=== PATIENT | female | born 1955 | race Hispanic/Latino ===

== ENCOUNTER 2017-03-20 09:29 | Emergency (ER) | payer MEDICARE, MEDICAID ==
[~2017-03-20] VITALS: Ht 149.9 cm; Wt 66.4 kg
[2017-03-20] MEDS ORDERED: BUPR300T34 PO (09:43)
[2017-03-20] MEDS ORDERED: AMLO25TA PO (09:46)
[2017-03-20] MEDS ORDERED: TEMA30CA PO (09:46)
[2017-03-20] MEDS ORDERED: QUET1TAB7 PO (09:46)
[2017-03-20] MEDS ORDERED: METO50TA7 PO (09:46)
[2017-03-20] MEDS ORDERED: PANT40TA2 PO (09:46)
[2017-03-20] MEDS ORDERED: AMLO5TAB2 PO (09:46)
[2017-03-20] MEDS ORDERED: NS 500 ML IV ONE (10:15)
[2017-03-20 10:51] LABS: BASO # 0.1 10^3/uL (0.0-0.2); BASO % 1.2 % (0.0-1.0); EOS # 0.2 10^3/uL (0.0-0.50); MEAN CORPUSCULAR HEMOGLOBIN 28.4 pg (27.0-33.0); MEAN CORPUSCULAR HGB CONC 32.5 g/dl (32.0-36.5); MEAN CORPUSCULAR VOLUME 87.2 fl (80.0-96.0); MONO # 0.4 10^3/uL (0.0-0.8); NEUTROPHILS # 2.6 10^3/uL (1.8-7.7); NEUTROPHILS % 62.8 % (36.0-66.0); PLATELET COUNT, AUTOMATED 245 10^3/uL (150-450); RED CELL DISTRIBUTION WIDTH 14.4 % (11.5-14.5); WHITE BLOOD COUNT 4.2 10^3/uL (4.0-10.0)
[2017-03-20 11:05] LABS: INR 1.01
--- NOTE | 2017-03-20 11:08 | ED PDOC ---
Post-Departure Follow-Up Patient does not speak Indonesian. Has daughter in the room and cousin on the phone to translate for patient. Reports a history of "stomach not emptying" - assuming Gastroparesis. States that when she began having epigastric abdominal pain, nausea and vomiting 2 weeks ago she went to see her GI doctor and they scheduled her for a endoscopy and colonoscopy, but the patient missed her appointment because they moved to a new location. Reports that she is still having epigastric abdominal pain that radiates to the back, nausea, vomiting and loose stools. Reports that these symptoms worsen after eating. Patient also reports intermittent urinary frequency. Denies fever, chest pain, shortness of breath. No reported history of cardiac disease. NANCY BARRIOS PA-C Mar 20, 2017 11:08
[2017-03-20 11:15] LABS: ALBUMIN 3.6 GM/DL (3.2-5.2); ALBUMIN/GLOBULIN RATIO 1.13 (1.00-1.93); ALKALINE PHOSPHATASE 117 U/L (45-117); ALT/SGPT 40 U/L (12-78); ANION GAP 5 MEQ/L (8-16); AST/SGOT 33 U/L (7-37); BILIRUBIN,DIRECT 0.1 MG/DL (0.0-0.2); BILIRUBIN,TOTAL 0.4 MG/DL (0.2-1.0); BLOOD UREA NITROGEN 19 MG/DL (7-18); CALCIUM LEVEL 8.6 MG/DL (8.8-10.2); CARBON DIOXIDE LEVEL 32 MEQ/L (21-32); CHLORIDE LEVEL 105 MEQ/L (98-107); CREATININE FOR GFR 1.03 MG/DL (0.55-1.02); GLUCOSE, FASTING 72 MG/DL (80-110); POTASSIUM SERUM 4.1 MEQ/L (3.5-5.1); SODIUM LEVEL 142 MEQ/L (136-145); TOTAL PROTEIN 6.8 GM/DL (6.4-8.2)
[2017-03-20] MEDS ORDERED: ISOVUE-370 76% 100ML VIAL (Q9967) As Ordered ONE (11:21)
--- NOTE | 2017-03-20 11:50 | REP ---
TWO VIEW CHEST: Two views of the chest are performed without priors for comparison. I see no acute infiltrate. There is mild cardiomegaly. There is tortuosity of the thoracic aorta. There are degenerative changes of the spine. IMPRESSION: Mild cardiomegaly. No acute infiltrate. Signed by Cyrus Morris MD 03/20/2017 05:43 P
--- NOTE | 2017-03-20 12:08 | REP ---
CT of the abdomen and pelvis with IV contrast, without bowel contrast: There are no comparisons. The visualized lung woodward are unremarkable. The hepatic parenchyma, gallbladder, pancreas and spleen are unremarkable. The adrenals and kidneys are unremarkable. There is no hydronephrosis. The abdominal aorta is unremarkable. There is no bowel distension or obstruction. Pelvis: The appendix is unremarkable. The uterus is unremarkable. There is a 8 mm calculus in the right adnexa. The left adnexa is unremarkable. There is no ascites or adenopathy. The bladder is unremarkable. The lumbar spine is unremarkable except for degenerative disc disease at L5 S1. There is multilevel degenerative disc disease in the visualized lower thoracic spine. Impression: Essentially negative CT of the abdomen pelvis except for a calcification in the right adnexa, of uncertain significance, degenerative calcification versus dermoid are some diagnostic considerations. Degenerative disc disease in the lumbar spine L5 S1 and in the lower thoracic spine. Signed by Cyrus Pedraza MD 03/20/2017 12:00 P
[2017-03-20] MEDS ORDERED: REGL10TA6 PO (12:50)
[2017-03-20 12:52] VITALS: BP 128/83
--- NOTE | 2017-03-21 06:48 | ECGEPIP ---
Stationary ECG Study [facility] - ED Test Date: 2017-03-20 Pat Name: JOSE GLASER Department: Room: - Gender: F [place]: sb : 1955 Requested By: NANCY Quintana PA-C Order Number: [id number] Reading MD: Michele Reynoso Measurements Intervals [place] Rate: 70 P: 43 NE: 183 QRS: 13 QRSD: 78 T: 60 QT: 396 QTc: 427 Interpretive Statements SINUS RHYTHM MODERATE VOLTAGE CRITERIA FOR LVH, CONSIDER NORMAL VARIANT NONSPECIFIC T-WAVE ABNORMALITY BASELINE ARTIFACT AND WANDERING MAY AFFECT READING NO OLD ECG FOR COMPARISON Electronically Signed On 03-21-2017 6:48:32 EDT by Michele Reynoso
== END 2017-03-20 12:58 | disposition home or self-care (01) ==
LOC: M ED 09:29
DX: K31.84 Gastroparesis (principal); R11.2 Nausea with vomiting, unspecified; R94.31 Abnormal electrocardiogram [ECG] [EKG]; I10 Essential (primary) hypertension; Z85.818 Personal history of malignant neoplasm of other sites of lip, oral cavity, and pharynx; M51.37 Other intervertebral disc degeneration, lumbosacral region; I51.7 Cardiomegaly; Z79.899 Other long term (current) drug therapy
CPT/HCPCS: 71020; 74177; 80048; 80076; 81001; 82550; 82553; 83605; 83690; 84484; 85025; 85610; 93005; 96360; 96361; 99284; Q9967

== ENCOUNTER 2017-03-30 20:05 | Emergency (ER) | payer MEDICARE, MEDICAID ==
[~2017-03-30] VITALS: Ht 149.9 cm; Wt 63.6 kg
[~2017-03-30 20:05] MED LIST: AMLO25TA PO; AMLO5TAB2 PO; BUPR300T34 PO; METO50TA7 PO; PANT40TA2 PO; QUET1TAB7 PO; REGL10TA6 PO; TEMA30CA PO
[2017-03-30 21:33] LABS: BASO # 0.1 10^3/uL (0.0-0.2); BASO % 0.9 % (0.0-1.0); EOS # 0.2 10^3/uL (0.0-0.50); EOS % 2.8 % (0.0-3.0); IMMATURE GRANULOCYTE % 0.3 % (0-0); LYMPH # 2.3 10^3/uL (1.5-4.5); MEAN CORPUSCULAR HEMOGLOBIN 28.4 pg (27.0-33.0); MEAN CORPUSCULAR HGB CONC 32.5 g/dl (32.0-36.5); MEAN CORPUSCULAR VOLUME 87.4 fl (80.0-96.0); MONO # 0.6 10^3/uL (0.0-0.8); MONO % 7.3 % (0.0-5.0); NEUTROPHILS # 4.8 10^3/uL (1.8-7.7); NEUTROPHILS % 59.7 % (36.0-66.0); PLATELET COUNT, AUTOMATED 275 10^3/uL (150-450); RED CELL DISTRIBUTION WIDTH 14.3 % (11.5-14.5)
[2017-03-30 22:01] LABS: ANION GAP 6 MEQ/L (8-16); BLOOD UREA NITROGEN 17 MG/DL (7-18); CALCIUM LEVEL 8.8 MG/DL (8.8-10.2); CARBON DIOXIDE LEVEL 31 MEQ/L (21-32); CHLORIDE LEVEL 105 MEQ/L (98-107); CREATININE FOR GFR 1.01 MG/DL (0.55-1.02); GLOMERULAR FILTRATION RATE 59.3 (>45); GLUCOSE, FASTING 82 MG/DL (80-110); POTASSIUM SERUM 3.5 MEQ/L (3.5-5.1); SODIUM LEVEL 142 MEQ/L (136-145)
[2017-03-30] MEDS ORDERED: ACETAMINOPHEN TAB 650MG DOSE (2X325MG) PO ONE (22:15)
[2017-03-31 04:09] VITALS: BP 124/78
--- NOTE | 2017-03-31 06:34 | ECGEPIP ---
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
--- NOTE | 2017-03-31 09:53 | REP ---
Clinical: Chest pain . Comparison: 03/20/2017 . Technique: PA and lateral. Findings: The mediastinum and cardiac silhouette are normal. The lung woodward are clear and without acute consolidation, effusion, or pneumothorax. The skeletal structures are intact and normal. Impression: 1. No acute cardiopulmonary process. Signed by Jesus Davis MD 03/31/2017 09:45 A
== END 2017-03-31 04:43 | disposition home or self-care (01) ==
LOC: M ED 20:05
DX: R07.89 Other chest pain (principal); I10 Essential (primary) hypertension; Z79.899 Other long term (current) drug therapy

== ENCOUNTER → 2017-06-17 | Outpatient (REF) | payer MEDICAID ==
[2017-06-17 12:27] LABS: BASO # 0.1 10^3/uL (0.0-0.2); BASO % 1.5 % (0.0-1.0); EOS # 0.2 10^3/uL (0.0-0.50); EOS % 4.9 % (0.0-3.0); HEMATOCRIT 40.5 % (36.0-47.0); HEMOGLOBIN 13.2 g/dl (12.0-16.0); IMMATURE GRANULOCYTE % 0.2 % (0-0); LYMPH # 1.4 10^3/uL (1.5-4.5); LYMPH % 30.3 % (24.0-44.0); MEAN CORPUSCULAR HEMOGLOBIN 27.7 pg (27.0-33.0); MEAN CORPUSCULAR HGB CONC 32.6 g/dl (32.0-36.5); MEAN CORPUSCULAR VOLUME 85.1 fl (80.0-96.0); MONO # 0.3 10^3/uL (0.0-0.8); MONO % 6.5 % (0.0-5.0); NEUTROPHILS # 2.6 10^3/uL (1.8-7.7); NEUTROPHILS % 56.6 % (36.0-66.0); PLATELET COUNT, AUTOMATED 269 10^3/uL (150-450); RED BLOOD COUNT 4.76 10^6/uL (4.00-5.40); RED CELL DISTRIBUTION WIDTH 14.3 % (11.5-14.5); WHITE BLOOD COUNT 4.7 10^3/uL (4.0-10.0)
[2017-06-17 13:29] LABS: ALBUMIN 3.5 GM/DL (3.2-5.2); ALBUMIN/GLOBULIN RATIO 1.03 (1.00-1.93); ALKALINE PHOSPHATASE 99 U/L (45-117); ALT/SGPT 27 U/L (12-78); ANION GAP 8 MEQ/L (8-16); AST/SGOT 23 U/L (7-37); BILIRUBIN,TOTAL 0.3 MG/DL (0.2-1.0); BLOOD UREA NITROGEN 14 MG/DL (7-18); CALCIUM LEVEL 8.6 MG/DL (8.8-10.2); CARBON DIOXIDE LEVEL 29 MEQ/L (21-32); CHLORIDE LEVEL 105 MEQ/L (98-107); CHOLESTEROL LEVEL 300 MG/DL (<200); CHOLESTEROL RISK RATIO 3.092 (<5); CREATININE FOR GFR 0.84 MG/DL (0.55-1.30); GLOMERULAR FILTRATION RATE > 60.0 (>45); GLUCOSE, FASTING 99 MG/DL (70-100); HDL CHOLESTEROL 97 MG/DL (>40); LDL CHOLESTEROL 188.8 MG/DL (<100); NON-HDL-C 203 MG/DL; POTASSIUM SERUM 4.3 MEQ/L (3.5-5.1); SODIUM LEVEL 142 MEQ/L (136-145); TOTAL PROTEIN 6.9 GM/DL (6.4-8.2); TRIGLYCERIDES LEVEL 71 MG/DL (<150)
== END ==
LOC: M LAB REF 11:49
DX: C73 Malignant neoplasm of thyroid gland (principal)

== ENCOUNTER 2018-01-08 14:00 | Emergency (ER) | payer MEDICARE, MEDICAID, OTHER ==
[2018-01-08] MEDS: KETOROLAC 30 MG/ML VIAL (J1885) IV ×2 (15:45)
[2018-01-08 16:26] LABS: BASO # 0.1 10^3/uL (0.0-0.2); BASO % 1.5 % (0.0-1.0); EOS # 0.3 10^3/uL (0.0-0.50); EOS % 4.8 % (0.0-3.0); HEMATOCRIT 40.4 % (36.0-47.0); IMMATURE GRANULOCYTE % 0.2 % (0-3.0); LYMPH # 1.7 10^3/uL (1.5-4.5); LYMPH % 31.9 % (24.0-44.0); MEAN CORPUSCULAR HEMOGLOBIN 28.4 pg (27.0-33.0); MEAN CORPUSCULAR HGB CONC 32.2 g/dl (32.0-36.5); MEAN CORPUSCULAR VOLUME 88.2 fl (80.0-96.0); MONO # 0.4 10^3/uL (0.0-0.8); MONO % 6.5 % (0.0-5.0); NEUTROPHILS % 55.1 % (36.0-66.0); PLATELET COUNT, AUTOMATED 252 10^3/uL (150-450); RED BLOOD COUNT 4.58 10^6/uL (4.00-5.40); RED CELL DISTRIBUTION WIDTH 14.8 % (11.5-14.5); WHITE BLOOD COUNT 5.4 10^3/uL (4.0-10.0)
[2018-01-08 16:52] LABS: ALBUMIN 3.4 GM/DL (3.2-5.2); ALBUMIN/GLOBULIN RATIO 0.94 (1.00-1.93); ALKALINE PHOSPHATASE 100 U/L (45-117); ALT/SGPT 25 U/L (12-78); ANION GAP 7 MEQ/L (8-16); AST/SGOT 25 U/L (7-37); BILIRUBIN,TOTAL 0.3 MG/DL (0.2-1.0); BLOOD UREA NITROGEN 16 MG/DL (7-18); CALCIUM LEVEL 8.6 MG/DL (8.8-10.2); CARBON DIOXIDE LEVEL 29 MEQ/L (21-32); CHLORIDE LEVEL 108 MEQ/L (98-107); CK-MB VALUE MASS < 1.0 NG/ML (<3.6); CPK CREATINE PHOSPHOKINASE 126 U/L (26-192); CREATININE FOR GFR 0.94 MG/DL (0.55-1.30); GLOMERULAR FILTRATION RATE > 60.0 (>45); GLUCOSE, FASTING 79 MG/DL (70-100); LIPASE 209 U/L (73-393); MB/CK RELATIVE INDEX 0.79 (< OR =4); POTASSIUM SERUM 4.3 MEQ/L (3.5-5.1); SODIUM LEVEL 144 MEQ/L (136-145); TROPONIN I < 0.02 NG/ML (< 0.10)
[2018-01-08 17:24] LABS: KETONE, URINE AUTO RFX NEGATIVE (NEGATIVE); MUCUS, URINE RFX SMALL (NEGATIVE); NITRITE, URINE AUTO RFX NEGATIVE (NEGATIVE); RBC, URINE AUTO RFX 2 /HPF (0-3); SPECIFIC GRAVITY UR AUTO RFX 1.026 (1.002-1.035); SQUAM EPITHELIAL CELL UR AURFX 0 /HPF (0-6); WBC, URINE AUTO RFX 2 /HPF (0-3)
[2018-01-08 17:33] LABS: LEUKOCYTE ESTERASE UR AUTO RFX TRACE (NEGATIVE)
[2018-01-08] MEDS ORDERED: METHOCARBAMOL 750 MG TAB PO ×2 (18:00)
== END 2018-01-08 18:29 | disposition home or self-care (01) ==
LOC: M ED 14:00
DX: R10.9 Unspecified abdominal pain (principal); M54.6 Pain in thoracic spine; I10 Essential (primary) hypertension; K21.9 Gastro-esophageal reflux disease without esophagitis
CPT/HCPCS: J1885

== ENCOUNTER → 2018-04-28 | Outpatient (CLI) | payer MEDICARE, MEDICAID | LOC: M LAB 16:19 | DX: S59.902A Unspecified injury of left elbow, initial encounter (principal); W19.XXXA Unspecified fall, initial encounter; Y92.9 Unspecified place or not applicable | CPT/HCPCS: 73080 ==

== ENCOUNTER 2018-07-09 12:26 | Emergency (ER) | payer MEDICARE, MEDICAID ==
[~2018-07-09] VITALS: Ht 152.4 cm; Wt 71.4 kg
[~2018-07-09 12:26] MED LIST changes: -AMLO5TAB2 PO; +AMLO5TAB6 PO; +MELO15TA28; +METO1TAB7; +OMEP40CA2; -PANT40TA2 PO; +PANT40TA3 PO; +ROBA500T PO; +SERT-155
[2018-07-09] MEDS ORDERED: ALL10TAB2 PO (13:47)
[2018-07-09 13:54] VITALS: BP 131/82
== END 2018-07-09 14:04 | disposition home or self-care (01) ==
LOC: M ED 12:26
DX: R22.0 Localized swelling, mass and lump, head (principal); I11.9 Hypertensive heart disease without heart failure

== ENCOUNTER 2018-10-05 15:26 | Emergency (ER) | payer MEDICARE ==
[~2018-10-05] VITALS: Ht 152.4 cm; Wt 70.9 kg
[~2018-10-05 15:26] MED LIST changes: -ALBU17IN2 INH; -PRED20TA PO; -PRIL20TA2 PO; -QUET1TAB7; -SUCR1SS PO; -TEMA15CA2
[2018-10-05] MEDS ORDERED: METO1TAB7 (15:49)
[2018-10-05] MEDS ORDERED: TEMA15CA2 (15:49)
[2018-10-05] MEDS ORDERED: QUET1TAB7 (15:49)
[2018-10-05 16:10] LABS: BASO # 0.1 10^3/uL (0.0-0.2); BASO % 1.2 % (0.0-1.0); EOS # 0.3 10^3/uL (0.0-0.50); EOS % 5.6 % (0.0-3.0); HEMATOCRIT 38.6 % (36.0-47.0); HEMOGLOBIN 12.4 g/dl (12.0-15.5); LYMPH # 1.5 10^3/uL (1.5-4.5); LYMPH % 31.1 % (24.0-44.0); MEAN CORPUSCULAR HEMOGLOBIN 27.5 pg (27.0-33.0); MEAN CORPUSCULAR HGB CONC 32.1 g/dl (32.0-36.5); MEAN CORPUSCULAR VOLUME 85.6 fl (80.0-96.0); MONO # 0.3 10^3/uL (0.0-0.8); MONO % 5.8 % (0.0-5.0); NEUTROPHILS # 2.7 10^3/uL (1.8-7.7); NEUTROPHILS % 56.3 % (36.0-66.0); PLATELET COUNT, AUTOMATED 227 10^3/uL (150-450); RED BLOOD COUNT 4.51 10^6/uL (4.00-5.40); WHITE BLOOD COUNT 4.8 10^3/uL (4.0-10.0)
[2018-10-05 16:28] LABS: PARTIAL THROMBOPLASTIN TIME 28.4 SECONDS (25.4-37.6)
[2018-10-05 16:32] LABS: INR 0.92; PROTHROMBIN TIME 12.5 SECONDS (12.1-14.4)
[2018-10-05 16:53] LABS: ALBUMIN 3.4 GM/DL (3.2-5.2); ALT/SGPT 41 U/L (12-78); BILIRUBIN,DIRECT < 0.1 MG/DL (0.0-0.2); BILIRUBIN,TOTAL 0.3 MG/DL (0.2-1.0); BLOOD UREA NITROGEN 22 MG/DL (7-18); CALCIUM LEVEL 8.8 MG/DL (8.8-10.2); CARBON DIOXIDE LEVEL 28 MEQ/L (21-32); CHLORIDE LEVEL 105 MEQ/L (98-107); CK-MB VALUE MASS < 1.0 NG/ML (<3.6); CPK CREATINE PHOSPHOKINASE 108 U/L (26-192); CREATININE FOR GFR 0.93 MG/DL (0.55-1.30); FREE T4 0.73 NG/DL (0.76-1.46); GLOMERULAR FILTRATION RATE > 60.0 (>45); GLUCOSE, FASTING 144 MG/DL (70-100); MB/CK RELATIVE INDEX 0.93 (< OR =4); POTASSIUM SERUM 4.2 MEQ/L (3.5-5.1); SODIUM LEVEL 141 MEQ/L (136-145); TOTAL PROTEIN 6.2 GM/DL (6.4-8.2); TROPONIN I < 0.02 NG/ML (< 0.10)
[2018-10-05] MEDS ORDERED: ISOVUE-370 76% 100ML VIAL (Q9967) As Ordered ONE (18:32)
--- NOTE | 2018-10-05 19:32 | REPVR ---
EXAM: CT Angiography Chest With Contrast EXAM DATE/TIME: 10/05/2018 6:47 PM CLINICAL HISTORY: 63 years old, female; Chest pain; Additional info: Shortness of breath, elevated ddimer TECHNIQUE: Imaging protocol: Axial computed tomographic angiography images of the chest with intravenous contrast using CT angiography protocol. Coronal and sagittal reformatted images were created and reviewed. 3D rendering: MIP reconstructed images were created and reviewed. Radiation optimization: All CT scans at this facility use at least one of these dose optimization techniques: automated exposure control; mA and/or kV adjustment per patient size (includes targeted exams where dose is matched to clinical indication); or iterative reconstruction. Contrast material: ISO 370; Contrast volume: 75 ml; Contrast route: IV; COMPARISON: CR CHEST 2 VIEW 10/05/2018 12:00 PM FINDINGS: Pulmonary arteries: There is opacification of the pulmonary arteries with no evidence of pulmonary embolus. Aorta: Opacification of the aorta. The aorta appears intact. Lungs: Lungs appear clear. Pleural space: There is no evidence of pneumothorax. There is no evidence of pleural effusion. Heart: The heart is normal in size. There is no pericardial effusion. Liver: Normal appearing liver. Spleen: Normal appearing spleen. Adrenals: Normal adrenal glands. Lymph nodes: Unremarkable. No enlarged lymph nodes. Bones/joints: Is mild anterior osteophyte formation and also kyphosis. Soft tissues: Unremarkable. IMPRESSION: No evidence of pulmonary embolus. Electronically signed by: Darrell Shanks On 10/05/2018 19:31:47 PM
[2018-10-05 20:23] LABS: CK-MB VALUE MASS < 1.0 NG/ML (<3.6); CPK CREATINE PHOSPHOKINASE 104 U/L (26-192); MB/CK RELATIVE INDEX 0.96 (< OR =4); TROPONIN I < 0.02 NG/ML (< 0.10)
[2018-10-05] MEDS ORDERED: SUCR1SS PO (20:43)
[2018-10-05] MEDS ORDERED: PRED20TA PO (20:43)
[2018-10-05] MEDS ORDERED: PRIL20TA2 PO (20:43)
[2018-10-05] MEDS ORDERED: ALBU17IN2 INH (20:43)
[2018-10-05] MEDS ORDERED: GI COCKTAIL 50ML BTL(HYOSCYAMINE/MAALOX/LIDOCAINE VISCOUS)(1:3:1) PO ONE (20:45)
[2018-10-05] MEDS ORDERED: predniSONE 20 MG TAB PO ONE (20:45)
[2018-10-05 21:11] VITALS: BP 167/99
--- NOTE | 2018-10-06 06:12 | ECGEPIP ---
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
--- NOTE | 2018-10-06 06:13 | ECGEPIP ---
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
== END 2018-10-05 21:13 | disposition home or self-care (01) ==
LOC: M ED 15:26
DX: K21.0 Gastro-esophageal reflux disease with esophagitis (principal); R07.1 Chest pain on breathing; J45.909 Unspecified asthma, uncomplicated; Z85.850 Personal history of malignant neoplasm of thyroid
CPT/HCPCS: 36415; 71046; 71275; 80048; 80053; 80076; 82550; 82553; 84439; 84443; 84484; 85025; 85379; 85610; 85730; 93005; 93041; 94760; 99285; Q9967

== ENCOUNTER → 2018-10-05 | Outpatient (CLI) | payer MEDICARE ==
[~2018-10-05] MED LIST changes: +ALBU17IN2 INH; +ALL10TAB2 PO; +PRED20TA PO; +PRIL20TA2 PO; +QUET1TAB7; +SUCR1SS PO; +TEMA15CA2
--- NOTE | 2018-10-05 12:38 | REP ---
Chest two views HISTORY: Chest pain Comparison: 03/30/2017 The lungs are clear. The heart is normal in size. The pulmonary vasculature is normal in appearance. The bony structure is intact. IMPRESSION: No acute disease. Electronically Signed by Daniel Joseph MD 10/05/2018 12:29 P
[2018-10-05 13:24] LABS: BASO # 0.1 10^3/uL (0.0-0.2); BASO % 1.2 % (0.0-1.0); EOS # 0.4 10^3/uL (0.0-0.50); HEMATOCRIT 41.5 % (36.0-47.0); LYMPH # 1.8 10^3/uL (1.5-4.5); LYMPH % 34.2 % (24.0-44.0); MEAN CORPUSCULAR HGB CONC 31.3 g/dl (32.0-36.5); MEAN CORPUSCULAR VOLUME 89.2 fl (80.0-96.0); MONO # 0.4 10^3/uL (0.0-0.8); MONO % 7.8 % (0.0-5.0); NEUTROPHILS # 2.5 10^3/uL (1.8-7.7); NEUTROPHILS % 49.4 % (36.0-66.0); PLATELET COUNT, AUTOMATED 260 10^3/uL (150-450); RED BLOOD COUNT 4.65 10^6/uL (4.00-5.40); WHITE BLOOD COUNT 5.1 10^3/uL (4.0-10.0)
[2018-10-05 14:09] LABS: ALBUMIN 3.4 GM/DL (3.2-5.2); ALT/SGPT 43 U/L (12-78); BILIRUBIN,TOTAL 0.4 MG/DL (0.2-1.0); BLOOD UREA NITROGEN 23 MG/DL (7-18); CALCIUM LEVEL 8.9 MG/DL (8.8-10.2); CARBON DIOXIDE LEVEL 30 MEQ/L (21-32); CHLORIDE LEVEL 104 MEQ/L (98-107); CK-MB VALUE MASS < 1.0 NG/ML (<3.6); CPK CREATINE PHOSPHOKINASE 105 U/L (26-192); CREATININE FOR GFR 0.89 MG/DL (0.55-1.30); FREE T4 0.73 NG/DL (0.76-1.46); GLOMERULAR FILTRATION RATE > 60.0 (>45); GLUCOSE, FASTING 64 MG/DL (70-100); MB/CK RELATIVE INDEX 0.95 (< OR =4); POTASSIUM SERUM 3.9 MEQ/L (3.5-5.1); SODIUM LEVEL 141 MEQ/L (136-145); TOTAL PROTEIN 6.6 GM/DL (6.4-8.2); TROPONIN I < 0.02 NG/ML (< 0.10)
== END ==
LOC: M WUC 11:53
PROVIDERS: ATTEND Physician Assistant
DX: R07.1 Chest pain on breathing (principal)

== ENCOUNTER → 2018-10-13 | Outpatient (REF) | payer MEDICARE, MEDICAID ==
[~2018-10-13] MED LIST changes: +ALBU17IN2 INH; +PRED20TA PO; +PRIL20TA2 PO; +QUET1TAB7; +SUCR1SS PO; +TEMA15CA2
[2018-10-14 13:32] LABS: AMORPHOUS SEDIMENT LARGE (NEGATIVE); APPEARANCE, URINE TURBID (CLEAR); BACTERIA, URINE AUTO NEGATIVE (NEGATIVE); BILIRUBIN, URINE AUTO NEGATIVE (NEGATIVE); BLOOD, URINE BLOOD NEGATIVE (NEGATIVE); COLOR, URINE AMBER (YELLOW); GLUCOSE, URINE (UA) AUTO NEGATIVE (NEGATIVE); KETONE, URINE AUTO NEGATIVE (NEGATIVE); LEUKOCYTE ESTERASE, URINE AUTO TRACE (NEGATIVE); MUCUS, URINE SMALL (NEGATIVE); NITRITE, URINE AUTO NEGATIVE (NEGATIVE); PROTEIN, URINE AUTO NEGATIVE (NEGATIVE); RBC, URINE AUTO 0 /HPF (0-3); SPECIFIC GRAVITY URINE AUTO 1.023 (1.002-1.035); SQUAMOUS EPITHELIAL CELL UR AU 0 /HPF (0-6); UROBILINOGEN, URINE AUTO 0.2 mg/dL (0.0-2.0); WBC, URINE AUTO 17 /HPF (0-3)
== END ==
LOC: M LAB REF 12:28
PROVIDERS: ATTEND Nurse Practitioner Family
DX: R39.89 Other symptoms and signs involving the genitourinary system (principal)

== ENCOUNTER 2019-02-06 14:59 | Emergency (ER) | payer MEDICARE, MEDICAID ==
[~2019-02-06 14:59] MED LIST changes: -ALBU17IN2 INH; -BUPR300T34 PO; +BUPR300T92 PO; -OMEP40CA2; +OMEP40CA97; +PROV108A INH; -SERT-155; +SERT50TA29
[2019-02-06] MEDS ORDERED: QUET1TAB8 (15:11)
[2019-02-06] MEDS ORDERED: ZOLP10TA2 (15:11)
[2019-02-06] MEDS ORDERED: BUPR150T3 (15:11)
[2019-02-06] MEDS ORDERED: NS 1,000 ML IV ONE (15:45)
[2019-02-06] MEDS ORDERED: MORPHINE 2 MG/ML 1ML VIAL (J2270) IV ONE (15:45)
[2019-02-06 16:02] LABS: BASO # 0.1 10^3/uL (0.0-0.2); BASO % 1.1 % (0.0-1.0); EOS # 0.2 10^3/uL (0.0-0.5); EOS % 3.6 % (0.0-3.0); HEMATOCRIT 39.6 % (36.0-47.0); HEMOGLOBIN 12.8 g/dl (12.0-15.5); LYMPH # 1.3 10^3/uL (1.5-5.0); MEAN CORPUSCULAR HEMOGLOBIN 28.8 pg (27.0-33.0); MEAN CORPUSCULAR HGB CONC 32.3 g/dl (32.0-36.5); MONO # 0.3 10^3/uL (0.0-0.8); MONO % 6.4 % (0.0-5.0); NEUTROPHILS # 3.4 10^3/uL (1.5-8.5); NEUTROPHILS % 63.5 % (36.0-66.0); PLATELET COUNT, AUTOMATED 267 10^3/uL (150-450); RED BLOOD COUNT 4.45 10^6/uL (4.00-5.40); WHITE BLOOD COUNT 5.3 10^3/uL (4.0-10.0)
[2019-02-06] MEDS ORDERED: ISOVUE-370 76% 100ML VIAL (Q9967) As Ordered ONE (16:25)
[2019-02-06 16:40] LABS: ALBUMIN 3.2 GM/DL (3.2-5.2); ALT/SGPT 28 U/L (12-78); AMYLASE 92 U/L (25-115); BILIRUBIN,DIRECT < 0.1 MG/DL (0.0-0.2); BILIRUBIN,TOTAL 0.4 MG/DL (0.2-1.0); LIPASE 118 U/L (73-393); TOTAL PROTEIN 6.6 GM/DL (6.4-8.2)
[2019-02-06] MEDS ORDERED: NAPR-837 PO (17:58)
[2019-02-06] MEDS ORDERED: KETOROLAC 30 MG/ML VIAL (J1885) IV ONE (18:00)
[2019-02-06 18:32] VITALS: BP 155/81
--- NOTE | 2019-02-07 07:42 | REP ---
CT ABDOMEN AND PELVIS WITH IV CONTRAST: TECHNIQUE: Axial contrast enhanced images from the lung bases to the pubic symphysis using 100 mL Isovue 370 intravenous contrast material with multiplanar reformations. Visualized lung bases demonstrate no infiltrate. Liver demonstrates no mass. There appear to be a few tiny gallstones in the gallbladder. There is no gallbladder wall thickening or edema. There is no biliary dilatation. The spleen is normal in size with no intrinsic abnormality. The adrenals, pancreas and kidneys appear unremarkable. There is no hydronephrosis bilaterally. There is no abnormal aortic aneurysm. There is no adenopathy. There is no free air or free fluid. No bowel wall thickening is seen. The appendix is normal. There are a few scattered diverticula of the colon without definite acute diverticulitis. I see no pelvic mass. The urinary bladder is mildly distended and grossly unremarkable. IMPRESSION: There appears to be a few tiny gallstones in the gallbladder without evidence of gallbladder wall edema or biliary dilatation. No free air or free fluid. Few scattered colonic diverticula without evidence for acute diverticulitis. Normal appendix. Electronically Signed by Cyrus Morris MD 02/08/2019 09:48 A
== END 2019-02-06 18:43 | disposition home or self-care (01) ==
LOC: M ED 14:59
DX: K80.20 Calculus of gallbladder without cholecystitis without obstruction (principal); K21.9 Gastro-esophageal reflux disease without esophagitis; Z79.899 Other long term (current) drug therapy
CPT/HCPCS: 74177; 80047; 80076; 81001; 82150; 83605; 83690; 85025; 87086; 96361; 96374; 96375; 99284; J1885; J2270; Q9967

== ENCOUNTER → 2019-04-05 | Outpatient (REF) | payer MEDICARE, MEDICAID ==
[~2019-04-05] MED LIST changes: +BUPR150T3; +BUPR300T34 PO; -BUPR300T92 PO; +NAPR-837 PO; +QUET1TAB8; +ZOLP10TA2
[2019-04-07 14:16] LABS: HPV HYBRID CAPTURE II Negative (Negative)
== END ==
LOC: M LAB REF 17:30
PROVIDERS: ATTEND Obstetrics & Gynecology
DX: Z12.4 Encounter for screening for malignant neoplasm of cervix (principal); N88.8 Other specified noninflammatory disorders of cervix uteri
CPT/HCPCS: 87624; G0123

== ENCOUNTER → 2019-05-26 | Outpatient (REF) | payer MEDICARE, MEDICAID ==
[~2019-05-26] MED LIST changes: -BUPR300T34 PO; +BUPR300T92 PO
[2019-05-26 14:22] LABS: BASO # 0.1 10^3/uL (0.0-0.2); BASO % 1.5 % (0.0-1.0); EOS # 0.2 10^3/uL (0.0-0.5); EOS % 3.6 % (0.0-3.0); HEMATOCRIT 42.3 % (36.0-47.0); HEMOGLOBIN 13.5 g/dl (12.0-15.5); LYMPH # 2.1 10^3/uL (1.5-5.0); LYMPH % 33.7 % (24.0-44.0); MEAN CORPUSCULAR HGB CONC 31.9 g/dl (32.0-36.5); MEAN CORPUSCULAR VOLUME 87.8 fl (80.0-96.0); MONO # 0.4 10^3/uL (0.0-0.8); MONO % 7.2 % (0.0-5.0); NEUTROPHILS # 3.3 10^3/uL (1.5-8.5); NEUTROPHILS % 53.8 % (36.0-66.0); PLATELET COUNT, AUTOMATED 287 10^3/uL (150-450); RED BLOOD COUNT 4.82 10^6/uL (4.00-5.40); WHITE BLOOD COUNT 6.1 10^3/uL (4.0-10.0)
[2019-05-26 14:36] LABS: ALBUMIN 3.9 GM/DL (3.2-5.2); ALT/SGPT 28 U/L (12-78); BILIRUBIN,TOTAL 0.3 MG/DL (0.2-1.0); BLOOD UREA NITROGEN 14 MG/DL (7-18); CALCIUM LEVEL 9.1 MG/DL (8.8-10.2); CARBON DIOXIDE LEVEL 31 MEQ/L (21-32); CHLORIDE LEVEL 104 MEQ/L (98-107); CHOLESTEROL LEVEL 317 MG/DL (<200); CHOLESTEROL RISK RATIO 3.773 (<5); CREATININE FOR GFR 0.99 MG/DL (0.55-1.30); FREE T4 0.71 NG/DL (0.76-1.46); GLOMERULAR FILTRATION RATE > 60.0 (>45); GLUCOSE, FASTING 94 MG/DL (70-100); HDL CHOLESTEROL 84 MG/DL (>40); LDL CHOLESTEROL 213 MG/DL (<100); NON-HDL-C 233 MG/DL; POTASSIUM SERUM 4.3 MEQ/L (3.5-5.1); SODIUM LEVEL 140 MEQ/L (136-145); TOTAL PROTEIN 7.2 GM/DL (6.4-8.2); TRIGLYCERIDES LEVEL 98 MG/DL (<150)
[2019-05-26 14:38] LABS: TOTAL 25(OH) VITAMIN D 25.5 NG/ML (30.0-100.0)
[2019-05-26 14:43] LABS: HEMOGLOBIN A1c 5.8 %
== END ==
LOC: M LAB REF 14:06
PROVIDERS: ATTEND Nurse Practitioner Family
DX: I10 Essential (primary) hypertension (principal); Z13.9 Encounter for screening, unspecified; E55.9 Vitamin D deficiency, unspecified

== ENCOUNTER → 2019-06-13 | Outpatient (CLI) | payer MEDICARE, MEDICAID ==
--- NOTE | 2019-06-17 19:12 | REP ---
BILATERAL SCREENING DIGITAL MAMMOGRAM WITH 3D TOMOSYNTHESIS: There are no palpable abnormalities or other breast complaints. The the patient states she had a clinical breast examination May,. The Tyrer-Cuzick Lifetime Breast Cancer Risk Score is: 9.0% . Comparisons are outside studies dated 12/20/2012 and 11/06/2010. The There are scattered areas of fibroglandular density. There is no dominant mass, micro calcific cluster or architectural distortion that would indicate malignancy. There are no additional findings on 3D tomosynthesiss. There is no change from the prior study. Impression: BIRADS/ACR category 1 mammogram. Negative. Recommendation: Routine annual screening mammography. This mammogram was interpreted with the aid of a FDA approved computer-aided detection system. A. Negative mammogram reports should not delay biopsy if a dominant or clinically suspicious mass is present. B. Not all breast cancers are identified by mammography or tomosynthesis. C. Adenosis and dense breasts may obscure an underlying neoplasm. Patient letter M1. Electronically Signed by Cyrus Pedraza MD 06/17/2019 07:04 P
== END ==
LOC: M WHC 13:28
PROVIDERS: ATTEND Nurse Practitioner Family
DX: Z12.31 Encounter for screening mammogram for malignant neoplasm of breast (principal)

== ENCOUNTER → 2020-08-14 | Outpatient (REF) | payer MEDICARE, MEDICAID, OTHER ==
[~2020-08-14] MED LIST changes: +AMLO1TAB24 PO; -AMLO5TAB6 PO; +BUPR150T12; -BUPR150T3; +PANT40TA29 PO; -PANT40TA3 PO; +QUET100T2; -QUET1TAB7; -QUET1TAB7 PO; -QUET1TAB8; +QUET25TA3; +QUET25TA3 PO
== END ==
LOC: M SFHCWAGY 17:23
PROVIDERS: ATTEND Obstetrics & Gynecology
DX: Z12.4 Encounter for screening for malignant neoplasm of cervix (principal); N95.8 Other specified menopausal and perimenopausal disorders
CPT/HCPCS: 87624; G0101; G0123

== ENCOUNTER 2021-03-27 17:18 | Emergency (ER) | payer OTHER, MEDICARE, MEDICAID ==
[~2021-03-27] VITALS: Ht 162.6 cm; Wt 72.7 kg
[~2021-03-27 17:18] MED LIST changes: +OMEP40CA4; -OMEP40CA97; +QUET1TAB17; +QUET1TAB17 PO; -QUET25TA3; -QUET25TA3 PO
[2021-03-27] MEDS ORDERED: NORCO, ANEXSIA 5/325MG TABLET (HYDROcodone/ACETAMINOPHEN) PO ONE (21:50)
[2021-03-27 22:49] VITALS: BP 142/96
== END 2021-03-27 23:13 | disposition home or self-care (01) ==
LOC: M ED 17:18
DX: S39.012A Strain of muscle, fascia and tendon of lower back, initial encounter (principal); S00.83XA Contusion of other part of head, initial encounter; S70.02XA Contusion of left hip, initial encounter; V43.62XA Car passenger injured in collision with other type car in traffic accident, initial encounter; Y92.9 Unspecified place or not applicable; Y93.9 Activity, unspecified; Y99.9 Unspecified external cause status; M51.9 Unspecified thoracic, thoracolumbar and lumbosacral intervertebral disc disorder; Z79.899 Other long term (current) drug therapy

== ENCOUNTER 2021-09-17 10:19 | Emergency (ER) | payer MEDICARE, MEDICAID ==
[~2021-09-17] VITALS: Ht 154.9 cm; Wt 84.1 kg
[~2021-09-17 10:19] MED LIST changes: -BUPR150T12; +BUPR150T12 PO; +CLON1TAB8 PO; +LISI5TAB11 PO; +METO1TAB7 PO; -QUET100T2; +QUET100T2 PO; +ZOLO50TA PO; -ZOLP10TA2; +ZOLP10TA2 PO
[2021-09-17 10:26] VITALS: BP 134/77
[2021-09-17 12:19] LABS: BASO # 0.1 10^3/uL (0.0-0.2); BASO % 1.5 % (0.0-1.0); EOS # 0.2 10^3/uL (0.0-0.5); EOS % 3.5 % (0.0-3.0); HEMATOCRIT 38.6 % (36.0-47.0); HEMOGLOBIN 12.2 g/dl (12.0-15.5); LYMPH # 1.6 10^3/uL (1.5-5.0); LYMPH % 32.8 % (24.0-44.0); MEAN CORPUSCULAR HEMOGLOBIN 27.2 pg (27.0-33.0); MEAN CORPUSCULAR HGB CONC 31.6 g/dl (32.0-36.5); MEAN CORPUSCULAR VOLUME 86.2 fl (80.0-96.0); MONO # 0.3 10^3/uL (0.0-0.8); MONO % 6.7 % (2.0-8.0); NEUTROPHILS # 2.7 10^3/uL (1.5-8.5); NEUTROPHILS % 55.3 % (36.0-66.0); PLATELET COUNT, AUTOMATED 318 10^3/uL (150-450); RED BLOOD COUNT 4.48 10^6/uL (4.00-5.40); WHITE BLOOD COUNT 4.8 10^3/uL (4.0-10.0)
[2021-09-17 12:48] LABS: ALBUMIN 3.6 GM/DL (3.2-5.2); ALT/SGPT 31 U/L (12-78); BILIRUBIN,DIRECT < 0.1 MG/DL (0.0-0.2); BILIRUBIN,TOTAL 0.2 MG/DL (0.2-1.0); LIPASE 186 U/L (73-393); TOTAL PROTEIN 6.9 GM/DL (6.4-8.2)
[2021-09-17] MEDS ORDERED: IBUP-1022 PO (15:33)
== END 2021-09-17 15:56 | disposition home or self-care (01) ==
LOC: M ED 10:19
DX: R10.2 Pelvic and perineal pain (principal); R93.89 Abnormal findings on diagnostic imaging of other specified body structures; I10 Essential (primary) hypertension

== ENCOUNTER → 2021-09-24 | Outpatient (CLI) | payer MEDICARE, MEDICAID ==
[~2021-09-24] MED LIST changes: +GASTROGRAFIN SOLUTION 30ML (Q9963) As Ordered ONE; +IBUP-1022 PO; +ISOVUE-370 76% 100ML VIAL As Ordered ONE
== END ==
LOC: M RAD 12:38
PROVIDERS: ATTEND Specialist
DX: C73 Malignant neoplasm of thyroid gland (principal); E89.0 Postprocedural hypothyroidism; R59.0 Localized enlarged lymph nodes; E04.2 Nontoxic multinodular goiter
CPT/HCPCS: 70491; 71260; 74177; 76536; Q9963; Q9967

== ENCOUNTER 2021-11-13 14:17 | Emergency (ER) | payer MEDICARE, MEDICAID ==
[~2021-11-13] VITALS: Ht 152.4 cm; Wt 78.7 kg
[~2021-11-13 14:17] MED LIST changes: -GASTROGRAFIN SOLUTION 30ML (Q9963) As Ordered ONE; -ISOVUE-370 76% 100ML VIAL As Ordered ONE
[2021-11-13] MEDS ORDERED: ZOLP10TA2 (14:44)
[2021-11-13] MEDS ORDERED: FURO20TA2 PO (14:44)
[2021-11-13] MEDS ORDERED: METO1TAB7 (14:44)
[2021-11-13] MEDS ORDERED: BUPR150T12 (14:44)
[2021-11-13] MEDS ORDERED: ATOR40TA75 (14:44)
[2021-11-13] MEDS ORDERED: QUET100T2 (14:44)
[2021-11-13] MEDS ORDERED: LISI5TAB11 (14:44)
[2021-11-13] MEDS ORDERED: MELO15TA28 PO (17:38)
[2021-11-13 17:54] VITALS: BP 156/88
== END 2021-11-13 18:20 | disposition home or self-care (01) ==
LOC: M ED 16:24 → EDBD 16:24 → M ED 18:20
DX: Z76.0 Encounter for issue of repeat prescription (principal); M17.0 Bilateral primary osteoarthritis of knee; I10 Essential (primary) hypertension; K21.9 Gastro-esophageal reflux disease without esophagitis; F32.A Depression, unspecified; Z79.899 Other long term (current) drug therapy; Z98.890 Other specified postprocedural states; Z90.710 Acquired absence of both cervix and uterus; Z85.3 Personal history of malignant neoplasm of breast

== ENCOUNTER 2022-02-12 15:48 | Emergency (ER) | payer MEDICAID, MEDICARE ==
[~2022-02-12] VITALS: Ht 152.4 cm; Wt 80.0 kg
[~2022-02-12 15:48] MED LIST changes: +ALBU6.7H6 INH; +ATOR40TA75; +BUPR150T12; +FURO20TA2 PO; +LISI5TAB11; +MELO15TA28 PO; -PROV108A INH; +QUET100T2; +ZOLP10TA2
[2022-02-12 17:00] LABS: RSV AMPLIFICATION NEGATIVE (NEGATIVE)
[2022-02-12 20:10] LABS: BASO # 0.1 10^3/uL (0.0-0.2); BASO % 0.9 % (0.0-1.0); EOS # 0.2 10^3/uL (0.0-0.5); HEMATOCRIT 40.3 % (36.0-47.0); HEMOGLOBIN 12.4 g/dl (12.0-15.5); LYMPH # 1.4 10^3/uL (1.5-5.0); LYMPH % 25.7 % (24.0-44.0); MEAN CORPUSCULAR HEMOGLOBIN 27.3 pg (27.0-33.0); MEAN CORPUSCULAR HGB CONC 30.8 g/dl (32.0-36.5); MEAN CORPUSCULAR VOLUME 88.6 fl (80.0-96.0); MONO # 0.2 10^3/uL (0.0-0.8); MONO % 4.5 % (2.0-8.0); NEUTROPHILS # 3.5 10^3/uL (1.5-8.5); NEUTROPHILS % 65.5 % (36.0-66.0); PLATELET COUNT, AUTOMATED 255 10^3/uL (150-450); RED BLOOD COUNT 4.55 10^6/uL (4.00-5.40); WHITE BLOOD COUNT 5.4 10^3/uL (4.0-10.0)
[2022-02-12 20:47] LABS: CK-MB VALUE MASS < 1.0 NG/ML (<3.6); CPK CREATINE PHOSPHOKINASE 130 U/L (26-192); MB/CK RELATIVE INDEX 0.77 (< OR =4)
[2022-02-12 20:52] LABS: ALBUMIN 3.7 GM/DL (3.2-5.2); ALT/SGPT 27 U/L (12-78); BILIRUBIN,DIRECT 0.1 MG/DL (0.0-0.2); BILIRUBIN,TOTAL 0.3 MG/DL (0.2-1.0); BLOOD UREA NITROGEN 14 MG/DL (7-18); CALCIUM LEVEL 9.2 MG/DL (8.8-10.2); CARBON DIOXIDE LEVEL 30 MEQ/L (21-32); CHLORIDE LEVEL 105 MEQ/L (98-107); GLOMERULAR FILTRATION RATE > 60.0 (>45); GLUCOSE, FASTING 141 MG/DL (70-100); LIPASE 140 U/L (73-393); POTASSIUM SERUM 4.2 MEQ/L (3.5-5.1); SODIUM LEVEL 139 MEQ/L (136-145); TOTAL PROTEIN 7.2 GM/DL (6.4-8.2)
[2022-02-12 22:33] LABS: CK-MB VALUE MASS < 1.0 NG/ML (<3.6); CPK CREATINE PHOSPHOKINASE 132 U/L (26-192); MB/CK RELATIVE INDEX 0.76 (< OR =4)
[2022-02-13] MEDS ORDERED: FUROSEMIDE 20 MG TAB PO ONE (00:30)
[2022-02-13] MEDS ORDERED: atenoloL 25 MG TAB PO ONE (00:30)
[2022-02-13] MEDS ORDERED: lisinopriL 5 MG TAB PO ONE (00:30)
[2022-02-13 00:35] LABS: NT-PRO BNP 45 PG/ML (<125)
[2022-02-13 00:39] VITALS: BP 220/98
[2022-02-13 02:30] VITALS: BP 151/80
== END 2022-02-13 02:57 | disposition home or self-care (01) ==
LOC: EDBD 15:48 → M ED 15:48
DX: R07.89 Other chest pain (principal); I10 Essential (primary) hypertension; I50.9 Heart failure, unspecified; E78.5 Hyperlipidemia, unspecified; Z79.899 Other long term (current) drug therapy

== ENCOUNTER → 2022-07-15 | Outpatient (REF) | payer MEDICARE, MEDICAID ==
[2022-07-15 17:31] LABS: BASO # 0.1 10^3/uL (0.0-0.2); BASO % 1.1 % (0.0-1.0); EOS # 0.3 10^3/uL (0.0-0.5); EOS % 5.3 % (0.0-3.0); HEMATOCRIT 37.1 % (36.0-47.0); HEMOGLOBIN 11.6 g/dl (12.0-15.5); LYMPH # 1.3 10^3/uL (1.5-5.0); LYMPH % 23.7 % (24.0-44.0); MEAN CORPUSCULAR HEMOGLOBIN 27.3 pg (27.0-33.0); MEAN CORPUSCULAR HGB CONC 31.3 g/dl (32.0-36.5); MEAN CORPUSCULAR VOLUME 87.3 fl (80.0-96.0); MONO # 0.4 10^3/uL (0.0-0.8); MONO % 6.4 % (2.0-8.0); NEUTROPHILS # 3.4 10^3/uL (1.5-8.5); NEUTROPHILS % 63.1 % (36.0-66.0); PLATELET COUNT, AUTOMATED 282 10^3/uL (150-450); RED BLOOD COUNT 4.25 10^6/uL (4.00-5.40); WHITE BLOOD COUNT 5.5 10^3/uL (4.0-10.0)
[2022-07-15 17:43] LABS: ALBUMIN 3.3 G/DL (3.2-5.2); ALKALINE PHOSPHATASE 110 U/L (46-116); ALT/SGPT 22 U/L (7.0-40); AST/SGOT 22 U/L (<34); BILIRUBIN,TOTAL 0.3 MG/DL (0.3-1.2); BLOOD UREA NITROGEN 20 MG/DL (9-23); CALCIUM LEVEL 8.4 MG/DL (8.3-10.6); CARBON DIOXIDE LEVEL 28 MMOL/L (20-31); CHLORIDE LEVEL 108 MMOL/L (98-107); CHOLESTEROL LEVEL 184 MG/DL (<200); CHOLESTEROL RISK RATIO 2.81 (<5); CREATININE FOR GFR 0.85 MG/DL (0.55-1.30); GLOMERULAR FILTRATION RATE > 60.0 (>45); GLUCOSE, FASTING 114 MG/DL (74-106); HDL CHOLESTEROL 65.4 MG/DL (>40); LDL CHOLESTEROL 102.6 MG/DL (<100); NON-HDL-C 119 MG/DL; POTASSIUM SERUM 4.1 MMOL/L (3.5-5.1); SODIUM LEVEL 141 MMOL/L (136-145); THYROID STIMULATING HORMONE 9.346 uIU/ML (0.55-4.78); TOTAL PROTEIN 6.2 G/DL (5.7-8.2); TRIGLYCERIDES LEVEL 80 MG/DL (<150)
[2022-07-15 17:44] LABS: TOTAL 25(OH) VITAMIN D 22.3 NG/ML (20.0-100.0)
[2022-07-15 17:48] LABS: HEMOGLOBIN A1c 5.9 % (4.0-6.0)
== END ==
LOC: M LAB REF 16:22
PROVIDERS: ATTEND Nurse Practitioner Family
DX: Z13.228 Encounter for screening for other metabolic disorders (principal)

== ENCOUNTER → 2022-12-18 | Outpatient (REF) | payer MEDICARE, MEDICAID | LOC: M LAB REF 11:39 | PROVIDERS: ATTEND Nurse Practitioner Family | DX: E03.9 Hypothyroidism, unspecified (principal) ==

== ENCOUNTER 2022-12-25 14:20 | Emergency (ER) | payer MEDICAID, MEDICARE, OTHER ==
[~2022-12-25] VITALS: Ht 154.9 cm; Wt 77.3 kg
[2022-12-25 14:21] VITALS: TEMP 96.7
[2022-12-25] MEDS ORDERED: MECLIZINE 25 MG TABLET PO ONE (15:30)
[2022-12-25] MEDS ORDERED: ISOVUE-370 76% 100ML VIAL As Ordered ONE (15:46)
[2022-12-25 15:57] LABS: BASO # 0.1 10^3/uL (0.0-0.2); BASO % 1.1 % (0.0-1.0); EOS # 0.1 10^3/uL (0.0-0.5); EOS % 1.6 % (0.0-3.0); HEMATOCRIT 38.7 % (36.0-47.0); LYMPH # 0.9 10^3/uL (1.5-5.0); LYMPH % 14.2 % (24.0-44.0); MEAN CORPUSCULAR HEMOGLOBIN 26.4 pg (27.0-33.0); MEAN CORPUSCULAR VOLUME 85.1 fl (80.0-96.0); MONO # 0.3 10^3/uL (0.0-0.8); MONO % 4.9 % (2.0-8.0); NEUTROPHILS # 4.8 10^3/uL (1.5-8.5); NEUTROPHILS % 77.9 % (36.0-66.0); PLATELET COUNT, AUTOMATED 243 10^3/uL (150-450); RED BLOOD COUNT 4.55 10^6/uL (4.00-5.40); WHITE BLOOD COUNT 6.1 10^3/uL (4.0-10.0)
[2022-12-25 16:13] LABS: CK-MB VALUE MASS < 1.0 NG/ML (<3.6)
[2022-12-25 16:14] LABS: INR 0.95; PROTHROMBIN TIME 12.4 SECONDS (12.5-14.5)
[2022-12-25 16:15] LABS: ALBUMIN 3.5 G/DL (3.2-5.2); ALKALINE PHOSPHATASE 113 U/L (46-116); ALT/SGPT 21 U/L (7.0-40); AST/SGOT 16 U/L (<34); BILIRUBIN,DIRECT 0.1 MG/DL (<0.4); BILIRUBIN,TOTAL 0.3 MG/DL (0.3-1.2); BLOOD UREA NITROGEN 18 MG/DL (9-23); CALCIUM LEVEL 8.7 MG/DL (8.3-10.6); CARBON DIOXIDE LEVEL 29 MMOL/L (20-31); CHLORIDE LEVEL 104 MMOL/L (98-107); CPK CREATINE PHOSPHOKINASE 122 U/L (34-145); GLOMERULAR FILTRATION RATE > 60.0 (>45); GLUCOSE, FASTING 138 MG/DL (74-106); MB/CK RELATIVE INDEX 0.81 (< OR =4); PARTIAL THROMBOPLASTIN TIME 26.7 SECONDS (24.8-34.2); POTASSIUM SERUM 4.1 MMOL/L (3.5-5.1); SODIUM LEVEL 140 MMOL/L (136-145); TOTAL PROTEIN 6.4 G/DL (5.7-8.2)
[2022-12-25 16:16] LABS: THYROID STIMULATING HORMONE 6.104 uIU/ML (0.55-4.78)
[2022-12-25 16:17] LABS: FREE T4 0.77 NG/DL (0.89-1.76)
[2022-12-25 17:16] LABS: CK-MB VALUE MASS < 1.0 NG/ML (<3.6)
[2022-12-25 17:19] LABS: CPK CREATINE PHOSPHOKINASE 124 U/L (34-145)
[2022-12-25 18:30] VITALS: BP 152/76
[2022-12-25 18:49] VITALS: O2SAT 99
[2022-12-25] MEDS ORDERED: MECL1TAB31 PO (19:13)
[2022-12-25 19:15] VITALS: O2SAT 100
== END 2022-12-25 19:51 | disposition home or self-care (01) ==
LOC: M ED 14:20
DX: R42 Dizziness and giddiness (principal); E04.1 Nontoxic single thyroid nodule; I10 Essential (primary) hypertension; K21.9 Gastro-esophageal reflux disease without esophagitis; F32.A Depression, unspecified; Z79.899 Other long term (current) drug therapy
CPT/HCPCS: 36415; 70450; 70496; 70498; 70544; 70551; 71045; 80047; 80048; 80076; 82550; 82553; 84439; 84443; 84484; 85025; 85610; 85730; 93005; 93041; 94760; 99285; Q9967

== ENCOUNTER → 2023-03-27 | Outpatient (CLI) | payer OTHER, MEDICAID ==
[~2023-03-27] MED LIST changes: +AMBI10TA PO; -ATOR40TA75; +ATOR40TA75 PO; +AZIT-12 PO; +CLON1TAB8; +COLA100C5 PO; +HYDR-3490 PO; +MACR100C43 PO; +MECL-209 PO; +MELO7.5T35 PO; +OMEP40CA4 PO; +PEPC1TAB5 PO; +PERC5TAB12 PO; +QUET50TA4 PO; +TOPR50TA PO; +VENTAER INH; +VITA200010; +ZOLO100T PO
== END ==
LOC: M RAD 09:56
PROVIDERS: ATTEND Physician Assistant
DX: M25.561 Pain in right knee (principal); M76.891 Other specified enthesopathies of right lower limb, excluding foot

== ENCOUNTER → 2023-03-27 | Outpatient (CLI) | payer OTHER, MEDICAID ==
[~2023-03-27] MED LIST changes: +E-Z-GAS II EFFERVESCENT PACKET (SODIUM BICARB./CITRIC ACID/SIMETHICONE) As Ordered ONE; +E-Z-HD 98% w/w 340GM SUSP BTL As Ordered ONE; +E-Z-PAQUE 96% w/w SUSP 176GM BTL As Ordered ONE
== END ==
LOC: EDBD → M RAD 09:51
PROVIDERS: ATTEND Physician Assistant Medical
DX: K21.9 Gastro-esophageal reflux disease without esophagitis (principal); R13.10 Dysphagia, unspecified; M25.561 Pain in right knee; M76.891 Other specified enthesopathies of right lower limb, excluding foot

== ENCOUNTER → 2023-05-28 | Outpatient (REF) | payer OTHER, MEDICAID, MEDICARE ==
[~2023-05-28] MED LIST changes: -E-Z-GAS II EFFERVESCENT PACKET (SODIUM BICARB./CITRIC ACID/SIMETHICONE) As Ordered ONE; -E-Z-HD 98% w/w 340GM SUSP BTL As Ordered ONE; -E-Z-PAQUE 96% w/w SUSP 176GM BTL As Ordered ONE
[2023-06-01 17:48] LABS: FREE T4 0.9 NG/DL (0.89-1.76); THYROID STIMULATING HORMONE 5.917 uIU/ML (0.55-4.78)
== END ==
LOC: M LAB REF 16:29
PROVIDERS: ATTEND Nurse Practitioner Family
DX: R89.1 Abnormal level of hormones in specimens from other organs, systems and tissues (principal)

== ENCOUNTER → 2023-08-13 | Day surgery (SDC) | payer MEDICARE, MEDICAID ==
[~2023-08-13] VITALS: Ht 152.4 cm; Wt 78.6 kg
[~2023-08-13] MED LIST changes: +LEVO25TA5 PO; +OMEP1CAP73 PO; +propofoL 200 MG/20 ML VIAL As Ordered ONE
[2023-08-13] MEDS: NS 1,000 ML IV ONE (08:08)
[2023-08-13 08:17] VITALS: BP 190/102; TEMP 97.3; O2SAT 98
== END | disposition home or self-care (01) ==
LOC: EDBD → M OPP 07:43
PROVIDERS: ATTEND Internal Medicine Gastroenterology
DX: K59.00 Constipation, unspecified (principal); R10.9 Unspecified abdominal pain; Z53.8 Procedure and treatment not carried out for other reasons

== ENCOUNTER 2023-08-14 21:44 | Inpatient (IN) | payer MEDICARE, MEDICAID ==
[~2023-08-14] VITALS: Ht 152.4 cm; Wt 79.7 kg
[~2023-08-14 21:44] MED LIST changes: -OMEP1CAP73 PO; -propofoL 200 MG/20 ML VIAL As Ordered ONE
[2023-08-14 22:22] LABS: VENOUS BASE EXCESS -2.6 (-2.0-2.0); VENOUS HCO3 24.7 MMOL/L (23.0-27.0); VENOUS PARTIAL PRESSURE CO2 53.4 mmHg (38.0-50.0); VENOUS PARTIAL PRESSURE O2 53.2 mmHg (30.0-50.0); VENOUS PH 7.283 UNITS (7.330-7.430); VENOUS TOTAL CO2 26.3 MMOL/L (24.0-28.0)
[2023-08-14 22:34] LABS: BASO % 0.6 % (0.0-1.0); HEMATOCRIT 34.6 % (36.0-47.0); HEMOGLOBIN 11.3 g/dl (12.0-15.5); LYMPH % 12.7 % (24.0-44.0); MEAN CORPUSCULAR HEMOGLOBIN 27.5 pg (27.0-33.0); MEAN CORPUSCULAR HGB CONC 32.7 g/dl (32.0-36.5); MEAN CORPUSCULAR VOLUME 84.2 fl (80.0-96.0); MONO % 12.7 % (2.0-8.0); NEUTROPHILS % 73.7 % (36.0-66.0); PLATELET COUNT, AUTOMATED 213 10^3/uL (150-450); RED BLOOD COUNT 4.11 10^6/uL (4.00-5.40); WHITE BLOOD COUNT 3.6 10^3/uL (4.0-10.0)
[2023-08-14 22:35] LABS: LYMPH # 0.5 10^3/uL (1.5-5.0); MONO # 0.5 10^3/uL (0.0-0.8); NEUTROPHILS # 2.7 10^3/uL (1.5-8.5)
[2023-08-14 22:36] LABS: ABG BASE EXCESS -1.4 (-2.0-2.0); ABG HCO3 23.7 MMOL/L (22.0-26.0); ABG O2 SATURATION 93.6 % (95.0-99.0); ABG PARTIAL PRESSURE CO2 41.3 mmHg (35.0-45.0); ABG PARTIAL PRESSURE O2 69.6 mmHg (75.0-100.0); ABG STANDARD HCO3 23.2 MMOL/L. (22.0-26.0); ABG pH (ARTERIAL) 7.377 UNITS (7.350-7.450)
[2023-08-15 01:06] LABS: AMPHETAMINES LEVEL URINE NEGATIVE (NEGATIVE)
[2023-08-15 01:07] LABS: BARBITURATES URINE NEGATIVE (NEGATIVE); CANNABINOIDS URINE NEGATIVE (NEGATIVE); COCAINE METABOLITE URINE NEGATIVE (NEGATIVE); METHADONE URINE NEGATIVE (NEGATIVE); OPIATES URINE NEGATIVE (NEGATIVE); PHENCYCLIDINE URINE NEGATIVE (NEGATIVE)
[2023-08-15 01:09] LABS: ETHYL ALCOHOL (ETHANOL) < 0.003 % (0.000-0.010)
[2023-08-15 01:11] LABS: ALBUMIN 3.1 G/DL (3.2-5.2); ALKALINE PHOSPHATASE 93 U/L (46-116); ALT/SGPT 20 U/L (7.0-40); AST/SGOT 22 U/L (<34); BILIRUBIN,DIRECT < 0.1 MG/DL (<0.4); BILIRUBIN,TOTAL 0.3 MG/DL (0.3-1.2); BLOOD UREA NITROGEN 14 MG/DL (9-23); CALCIUM LEVEL 8.5 MG/DL (8.3-10.6); CARBON DIOXIDE LEVEL 26 MMOL/L (20-31); CHLORIDE LEVEL 103 MMOL/L (98-107); CREATININE FOR GFR 0.76 MG/DL (0.55-1.30); GLOMERULAR FILTRATION RATE > 60.0 (>45); GLUCOSE, FASTING 107 MG/DL (74-106); POTASSIUM SERUM 3.6 MMOL/L (3.5-5.1); SALICYLATE LEVEL < 3.0 MG/DL (<30); SODIUM LEVEL 134 MMOL/L (136-145); TOTAL PROTEIN 6.1 G/DL (5.7-8.2)
[2023-08-15 01:13] LABS: THYROID STIMULATING HORMONE 1.561 uIU/ML (0.55-4.78)
[2023-08-15 01:15] LABS: BENZODIAZEPINES URINE POSITIVE (NEGATIVE)
[2023-08-15] MEDS ORDERED: MED REC CURRENTLY UNOBTAINABLE XX SCH (03:20)
[2023-08-15] MEDS ORDERED: ONDANSETRON 4MG 2ML VIAL IV PRN (04:15)
[2023-08-15] MEDS ORDERED: ALBUTEROL 90 MCG/ACT 8GM HFA INHALER INH PRN (04:35)
[2023-08-15 04:51] VITALS: BP 150/93; TEMP 98.6; O2SAT 94
[2023-08-15 04:52] LABS: LDH LACTATE DEHYDROGENASE 229 U/L (120-246)
[2023-08-15 04:56] LABS: FERRITIN 11.8 NG/ML (7.3-270.7)
[2023-08-15 05:01] LABS: PROCALCITONIN 0.12 ng/ml
[2023-08-15] MEDS ORDERED: OMEP1CAP73 PO (05:44)
[2023-08-15] MEDS ORDERED: QUET50TA4 PO (05:44)
[2023-08-15] MEDS ORDERED: CLON1TAB8 PO (05:45)
[2023-08-15] MEDS ORDERED: MELO7.5T35 PO (05:45)
[2023-08-15] MEDS ORDERED: HOME MED LIST COMPLETE! XX SCH (05:50)
[2023-08-15] MEDS: REMDESIVIR 200 MG in NS 250 ML IV ONE (06:13)
[2023-08-15 06:28] LABS: D-DIMER QUANT 1.86 ug/mL (<0.5); INR 1.05; PARTIAL THROMBOPLASTIN TIME 29.7 SECONDS (24.8-34.2); PROTHROMBIN TIME 13.4 SECONDS (12.5-14.5)
[2023-08-15 08:00] VITALS: BP 154/97; TEMP 98.1; O2SAT 98
[2023-08-15] MEDS: ENOXAPARIN 40MG/0.4ML SYRINGE (J1650 PER 10MG) SC SCH (08:39)
[2023-08-15 14:00] VITALS: BP 155/87; TEMP 98; O2SAT 98
[2023-08-15] MEDS ORDERED: zolPIDEM TARTRATE 5 MG TAB PO PRN (20:40)
[2023-08-15] MEDS ORDERED: QUEtiapine FUMARATE 50MG TAB PO SCH (21:00)
[2023-08-15] MEDS ORDERED: clonazePAM 1 MG TAB PO SCH (21:00)
[2023-08-15] MEDS ORDERED: QUEtiapine FUMARATE 100 MG TAB PO SCH (21:00)
[2023-08-15 21:20] VITALS: BP 156/90; TEMP 98.8; O2SAT 97
[2023-08-15] MEDS: QUEtiapine FUMARATE 200 MG TAB PO SCH (22:03)
[2023-08-15] MEDS: DEXTROMETHORPHAN 60MG/10ML SUSP 90ML BTL(DELSYM) PO PRN (22:03)
[2023-08-15] MEDS: QUEtiapine FUMARATE 50MG TAB PO SCH (22:03)
[2023-08-15] MEDS: clonazePAM 1 MG TAB PO SCH (22:03)
[2023-08-15] MEDS: OMEPRAZOLE 20MG CAP PO SCH (22:03)
[2023-08-15] MEDS: ACETAMINOPHEN TAB 650MG DOSE (2X325MG) PO PRN (22:10)
[2023-08-16] VITALS (7 sets, daily range): BP systolic 113–150; BP diastolic 74–91; TEMP 97.1–98.6; O2SAT 89–96
[2023-08-16] MEDS: METOPROLOL TART 25 MG TABLET PO ONE (00:58)
[2023-08-16] MEDS: LEVOTHYROXINE 25MCG TABLET (0.025MG) PO SCH (05:58)
[2023-08-16] MEDS: REMDESIVIR 100 MG in NS 250 ML IV SCH (05:58)
[2023-08-16 07:12] LABS: ALKALINE PHOSPHATASE 92 U/L (46-116); ALT/SGPT 20 U/L (7.0-40); AST/SGOT 21 U/L (<34); BILIRUBIN,DIRECT < 0.1 MG/DL (<0.4); BILIRUBIN,TOTAL 0.2 MG/DL (0.3-1.2); TOTAL PROTEIN 5.8 G/DL (5.7-8.2)
[2023-08-16] MEDS ORDERED: METOPROLOL SUCC (TopROL XL) 50MG **XL** TAB PO SCH (09:00)
[2023-08-16] MEDS ORDERED: LEVOTHYROXINE 25MCG TABLET (0.025MG) PO SCH (09:00)
[2023-08-16] MEDS ORDERED: SERTRALINE 100 MG TAB PO SCH (09:00)
[2023-08-16] MEDS ORDERED: MELOXICAM (MOBIC) 7.5 MG TAB PO SCH (09:00)
[2023-08-16 09:01] LABS: BLOOD UREA NITROGEN 14 MG/DL (9-23); CALCIUM LEVEL 8.1 MG/DL (8.3-10.6); CARBON DIOXIDE LEVEL 28 MMOL/L (20-31); CHLORIDE LEVEL 107 MMOL/L (98-107); CREATININE FOR GFR 0.73 MG/DL (0.55-1.30); GLOMERULAR FILTRATION RATE > 60.0 (>45); GLUCOSE, FASTING 102 MG/DL (74-106); POTASSIUM SERUM 4.1 MMOL/L (3.5-5.1); SODIUM LEVEL 140 MMOL/L (136-145)
[2023-08-16] MEDS: ATORVASTATIN 20 MG TAB PO SCH (09:33)
[2023-08-16] MEDS: SERTRALINE HCL 50 MG TAB PO SCH (09:33)
[2023-08-16] MEDS: MELOXICAM (MOBIC) 7.5 MG TAB PO SCH (09:33)
[2023-08-16] MEDS: METOPROLOL SUCC (TopROL XL) 50MG **XL** TAB PO SCH (09:36)
[2023-08-17 06:00] VITALS: BP 115/73; TEMP 97.9; O2SAT 96
[2023-08-17 10:00] VITALS: BP 120/60; TEMP 98.1; O2SAT 96
[2023-08-17 14:00] VITALS: BP 140/75; TEMP 98.2; O2SAT 96
[2023-08-17 18:00] VITALS: BP 120/60; TEMP 98.2; O2SAT 96
[2023-08-17 22:00] VITALS: BP 146/88; TEMP 98.1; O2SAT 93
[2023-08-18] VITALS (46 sets, daily range): BP systolic 106–178; BP diastolic 57–105; TEMP 98.2–102.9; O2SAT 93–98
[2023-08-18 06:28] LABS: HEMATOCRIT 38.8 % (36.0-47.0); HEMOGLOBIN 12.5 g/dl (12.0-15.5); MEAN CORPUSCULAR HEMOGLOBIN 27.1 pg (27.0-33.0); MEAN CORPUSCULAR HGB CONC 32.2 g/dl (32.0-36.5); MEAN CORPUSCULAR VOLUME 84.2 fl (80.0-96.0); PLATELET COUNT, AUTOMATED 202 10^3/uL (150-450); RED BLOOD COUNT 4.61 10^6/uL (4.00-5.40); WHITE BLOOD COUNT 9.5 10^3/uL (4.0-10.0)
[2023-08-18] MEDS ORDERED: ISOVUE-370 76% 100ML VIAL As Ordered ONE (09:02)
[2023-08-18 10:06] LABS: HEMATOCRIT 36.3 % (36.0-47.0); HEMOGLOBIN 11.8 g/dl (12.0-15.5); MEAN CORPUSCULAR HEMOGLOBIN 27.2 pg (27.0-33.0); MEAN CORPUSCULAR HGB CONC 32.5 g/dl (32.0-36.5); MEAN CORPUSCULAR VOLUME 83.6 fl (80.0-96.0); PLATELET COUNT, AUTOMATED 214 10^3/uL (150-450); RED BLOOD COUNT 4.34 10^6/uL (4.00-5.40)
[2023-08-18 10:27] LABS: INR 1.12; PARTIAL THROMBOPLASTIN TIME 30.5 SECONDS (24.8-34.2)
[2023-08-18 10:43] LABS: PROCALCITONIN 0.42 ng/ml
[2023-08-18 10:45] LABS: ALBUMIN 3.3 G/DL (3.2-5.2); ALKALINE PHOSPHATASE 93 U/L (46-116); ALT/SGPT 22 U/L (7.0-40); AST/SGOT 21 U/L (<34); BILIRUBIN,TOTAL 0.4 MG/DL (0.3-1.2); BLOOD UREA NITROGEN 13 MG/DL (9-23); CARBON DIOXIDE LEVEL 26 MMOL/L (20-31); CHLORIDE LEVEL 97 MMOL/L (98-107); CHOLESTEROL LEVEL 117 MG/DL (<200); CHOLESTEROL RISK RATIO 1.97 (<5); CREATININE FOR GFR 0.64 MG/DL (0.55-1.30); GLOMERULAR FILTRATION RATE > 60.0 (>45); GLUCOSE, FASTING 121 MG/DL (74-106); HDL CHOLESTEROL 59.1 MG/DL (>40); LDL CHOLESTEROL 44.3 MG/DL (<100); NON-HDL-C 57.9 MG/DL; POTASSIUM SERUM 3.3 MMOL/L (3.5-5.1); SODIUM LEVEL 133 MMOL/L (136-145); TOTAL PROTEIN 6.2 G/DL (5.7-8.2); TRIGLYCERIDES LEVEL 68 MG/DL (<150)
[2023-08-18] MEDS: TENECTEPLASE 50 MG/10 ML VIAL IVP ONE (10:57)
[2023-08-18] MEDS: SODIUM CHLORIDE 0.9% INJ 10 ML SYR IV ONE ×2 (10:57)
[2023-08-18] MEDS: ACETAMINOPHEN *IV* 1,000 MG in IV 1 EA IV ONE ×2 (16:31→22:16)
[2023-08-18] MEDS: KCL 10MEQ/100ML SWI (KRUN) 10 MEQ in IV 1 EA IV SCH (16:54)
[2023-08-18] MEDS: cefTRIAXone SOD 1 GM in D5W MINI-BAG PLUS 50 ML IV SCH (18:21)
[2023-08-19] VITALS (20 sets, daily range): BP systolic 109–172; BP diastolic 57–103; TEMP 98.9–102.7; O2SAT 94–98
[2023-08-19 06:00] LABS: ALBUMIN 3.1 G/DL (3.2-5.2); ALKALINE PHOSPHATASE 91 U/L (46-116); ALT/SGPT 23 U/L (7.0-40); AST/SGOT 22 U/L (<34); BILIRUBIN,TOTAL 0.4 MG/DL (0.3-1.2); BLOOD UREA NITROGEN 18 MG/DL (9-23); CALCIUM LEVEL 8.1 MG/DL (8.3-10.6); CARBON DIOXIDE LEVEL 27 MMOL/L (20-31); CHLORIDE LEVEL 101 MMOL/L (98-107); CREATININE FOR GFR 0.83 MG/DL (0.55-1.30); GLOMERULAR FILTRATION RATE > 60.0 (>45); GLUCOSE, FASTING 114 MG/DL (74-106); POTASSIUM SERUM 4.2 MMOL/L (3.5-5.1); SODIUM LEVEL 137 MMOL/L (136-145); TOTAL PROTEIN 6.1 G/DL (5.7-8.2)
[2023-08-19 11:26] LABS: HEMATOCRIT 37.3 % (36.0-47.0); HEMOGLOBIN 12.1 g/dl (12.0-15.5); MEAN CORPUSCULAR HEMOGLOBIN 27.5 pg (27.0-33.0); MEAN CORPUSCULAR HGB CONC 32.4 g/dl (32.0-36.5); MEAN CORPUSCULAR VOLUME 84.8 fl (80.0-96.0); PLATELET COUNT, AUTOMATED 209 10^3/uL (150-450); WHITE BLOOD COUNT 7.2 10^3/uL (4.0-10.0)
[2023-08-19] MEDS: ASPIRIN 81MG ENTERIC TABLET PO SCH (11:50)
[2023-08-19] MEDS ORDERED: VANCOMYCIN HCL IV SCH (12:15)
[2023-08-19] MEDS ORDERED: FLUID PLACE HOLDER IV SCH (12:15)
[2023-08-19] MEDS ORDERED: PIPERACILLIN/TAZOBACTAM SOD 4.5 GM in D5W MINI-BAG PLUS 50 ML IV SCH ×2 (12:15→15:00)
[2023-08-19] MEDS: VANCOMYCIN HCL 750 MG, VIAL MATE ADAPTER 1 EACH in D5W 250 ML IV ONE ×2 (12:56→14:08)
[2023-08-19] MEDS: cefTRIAXone SOD 2 GM in D5W MINI-BAG PLUS 50 ML IV SCH (15:20)
[2023-08-19] MEDS: HYALURONIDASE 150UNIT/ML 1ML VIAL (AMPHADASE) SC ONE (16:20)
[2023-08-19] MEDS: AMPICILLIN SOD 2 GM in D5W MINI-BAG PLUS 100 ML IV SCH (16:32)
[2023-08-19] MEDS: ACYCLOVIR IV SCH (17:13)
[2023-08-19] MEDS: NS IV SCH (17:13)
[2023-08-19] MEDS: VANCOMYCIN HCL 1,000 MG, VIAL MATE ADAPTER 1 EACH in D5W 250 ML IV SCH (21:24)
[2023-08-20] VITALS (7 sets, daily range): BP systolic 132–170; BP diastolic 79–97; TEMP 97.5–100.8; O2SAT 97–99
[2023-08-20] MEDS: METOPROLOL SUCC (TopROL XL) 50MG **XL** TAB PO SCH (00:03)
[2023-08-20 08:07] LABS: BASO % 0.7 % (0.0-1.0); EOS # 0.1 10^3/uL (0.0-0.5); EOS % 1.8 % (0.0-3.0); HEMATOCRIT 36.8 % (36.0-47.0); HEMOGLOBIN 11.7 g/dl (12.0-15.5); LYMPH # 0.9 10^3/uL (1.5-5.0); LYMPH % 19.8 % (24.0-44.0); MEAN CORPUSCULAR HEMOGLOBIN 26.8 pg (27.0-33.0); MEAN CORPUSCULAR HGB CONC 31.8 g/dl (32.0-36.5); MEAN CORPUSCULAR VOLUME 84.4 fl (80.0-96.0); MONO # 0.4 10^3/uL (0.0-0.8); MONO % 8.8 % (2.0-8.0); NEUTROPHILS # 3.1 10^3/uL (1.5-8.5); NEUTROPHILS % 68.5 % (36.0-66.0); PLATELET COUNT, AUTOMATED 193 10^3/uL (150-450); RED BLOOD COUNT 4.36 10^6/uL (4.00-5.40); WHITE BLOOD COUNT 4.5 10^3/uL (4.0-10.0)
[2023-08-20 08:21] LABS: ERYTHROCYTE SEDIMENTATION RATE 44 mm/hr (0-30)
[2023-08-20 08:25] LABS: BLOOD UREA NITROGEN 9 MG/DL (9-23); CALCIUM LEVEL 8.1 MG/DL (8.3-10.6); CARBON DIOXIDE LEVEL 29 MMOL/L (20-31); CHLORIDE LEVEL 103 MMOL/L (98-107); CREATININE FOR GFR 0.77 MG/DL (0.55-1.30); GLOMERULAR FILTRATION RATE > 60.0 (>45); GLUCOSE, FASTING 125 MG/DL (74-106); POTASSIUM SERUM 4.2 MMOL/L (3.5-5.1); SODIUM LEVEL 135 MMOL/L (136-145)
[2023-08-20] MEDS: ATORVASTATIN 20 MG TAB PO SCH (09:01)
[2023-08-20 10:11] LABS: PROCALCITONIN 1.51 ng/ml
[2023-08-20 11:38] LABS: INR 1.16; PARTIAL THROMBOPLASTIN TIME 26.6 SECONDS (24.8-34.2); PROTHROMBIN TIME 14.4 SECONDS (12.5-14.5)
[2023-08-20] MEDS: POTASSIUM CHLORIDE 10MEQ SR TABLET PO ONE (12:44)
[2023-08-20] MEDS: VANCOMYCIN HCL 500 MG in D5W MINI-BAG PLUS 100 ML IV ONE (13:11)
[2023-08-21] VITALS (8 sets, daily range): BP systolic 124–187; BP diastolic 71–102; TEMP 97.1–97.6; O2SAT 95–99
[2023-08-21 08:37] LABS: HEMOGLOBIN A1c 5.7 % (4.0-6.0)
[2023-08-21] MEDS ORDERED: LIDOCAINE 1% MDV 20ML VIAL As Ordered ONE (09:13)
[2023-08-21 09:33] LABS: BASO % 0.5 % (0.0-1.0); EOS # 0.1 10^3/uL (0.0-0.5); HEMATOCRIT 40.9 % (36.0-47.0); HEMOGLOBIN 13.1 g/dl (12.0-15.5); LYMPH # 0.9 10^3/uL (1.5-5.0); LYMPH % 16.3 % (24.0-44.0); MEAN CORPUSCULAR HEMOGLOBIN 27.5 pg (27.0-33.0); MEAN CORPUSCULAR VOLUME 85.7 fl (80.0-96.0); MONO # 0.5 10^3/uL (0.0-0.8); MONO % 9.3 % (2.0-8.0); NEUTROPHILS # 3.9 10^3/uL (1.5-8.5); NEUTROPHILS % 71.5 % (36.0-66.0); PLATELET COUNT, AUTOMATED 233 10^3/uL (150-450); RED BLOOD COUNT 4.77 10^6/uL (4.00-5.40); WHITE BLOOD COUNT 5.5 10^3/uL (4.0-10.0)
[2023-08-21 10:04] LABS: CALCIUM LEVEL 8.6 MG/DL (8.3-10.6); CREATININE FOR GFR 1.4 MG/DL (0.55-1.30); GLOMERULAR FILTRATION RATE 39.8 (>45); POTASSIUM SERUM 4.4 MMOL/L (3.5-5.1)
[2023-08-21] MEDS: ceFAZolin SOD 2 GM in IV 1 EA IV SCH (10:30)
[2023-08-21] MEDS: LR 1,000 ML IV SCH (13:33)
[2023-08-21] MEDS: SODIUM CHLORIDE 0.9% INJ 10 ML SYR IV SCH (17:45)
[2023-08-21 18:00] LABS: APPEARANCE, URINE CLEAR (CLEAR); BACTERIA, URINE AUTO NEGATIVE (NEGATIVE); BILIRUBIN, URINE AUTO NEGATIVE (NEGATIVE); BLOOD, URINE BLOOD 1+ (NEGATIVE); COLOR, URINE YELLOW (YELLOW); GLUCOSE, URINE (UA) AUTO NEGATIVE (NEGATIVE); KETONE, URINE AUTO NEGATIVE (NEGATIVE); LEUKOCYTE ESTERASE, URINE AUTO NEGATIVE (NEGATIVE); MUCUS, URINE SMALL (NEGATIVE); NITRITE, URINE AUTO NEGATIVE (NEGATIVE); PROTEIN, URINE AUTO NEGATIVE (NEGATIVE); RBC, URINE AUTO 0 /HPF (0-3); SQUAMOUS EPITHELIAL CELL UR AU 1 /HPF (0-6); UROBILINOGEN, URINE AUTO 0.2 mg/dL (0.0-2.0); WBC, URINE AUTO 3 /HPF (0-3)
[2023-08-21] MEDS: HEPARIN SOD (PORCINE) 5000UNITS/ML 1ML VIAL/SYRINGE SQ SCH (21:25)
[2023-08-21] MEDS: hydrALAZINE 20MG/ML 1ML VIAL IV ONE (22:05)
[2023-08-22 02:10] VITALS: BP 164/94; TEMP 97.7
[2023-08-22 04:00] VITALS: BP 176/106; TEMP 97.8; O2SAT 98
[2023-08-22] MEDS: SODIUM CHLORIDE 0.9% INJ 10 ML SYR IV PRN (04:09)
[2023-08-22 04:29] LABS: BASO % 0.7 % (0.0-1.0); EOS # 0.2 10^3/uL (0.0-0.5); EOS % 4.2 % (0.0-3.0); HEMATOCRIT 34.6 % (36.0-47.0); LYMPH # 1.5 10^3/uL (1.5-5.0); LYMPH % 33.4 % (24.0-44.0); MEAN CORPUSCULAR HEMOGLOBIN 26.7 pg (27.0-33.0); MEAN CORPUSCULAR HGB CONC 31.5 g/dl (32.0-36.5); MEAN CORPUSCULAR VOLUME 84.6 fl (80.0-96.0); MONO # 0.4 10^3/uL (0.0-0.8); MONO % 7.8 % (2.0-8.0); NEUTROPHILS # 2.4 10^3/uL (1.5-8.5); NEUTROPHILS % 53.5 % (36.0-66.0); PLATELET COUNT, AUTOMATED 234 10^3/uL (150-450); RED BLOOD COUNT 4.09 10^6/uL (4.00-5.40); WHITE BLOOD COUNT 4.5 10^3/uL (4.0-10.0)
[2023-08-22 04:30] LABS: HEMOGLOBIN 10.9 g/dl (12.0-15.5)
[2023-08-22 04:53] LABS: CREATININE FOR GFR 1.1 MG/DL (0.55-1.30); GLOMERULAR FILTRATION RATE 52.6 (>45); POTASSIUM SERUM 4.1 MMOL/L (3.5-5.1)
[2023-08-22 08:00] VITALS: BP 185/95; TEMP 98; O2SAT 98
[2023-08-22] MEDS: METOPROLOL SUCC (TopROL XL) 50MG **XL** TAB PO SCH (09:21)
[2023-08-22 12:17] VITALS: BP 143/84; O2SAT 99
[2023-08-22] MEDS: CHLORTHALIDONE 25 MG TAB PO SCH (12:21)
[2023-08-22] MEDS: cefTRIAXone SOD 2 GM in D5W MINI-BAG PLUS 50 ML IV SCH (14:40)
[2023-08-22 20:55] VITALS: TEMP 97.1; O2SAT 99
[2023-08-22 21:30] VITALS: BP 140/80
[2023-08-23 04:30] VITALS: BP_SYST 138; BP_SYST 142; BP_DIAS 82; TEMP 97.3; O2SAT 95
[2023-08-23 05:12] LABS: HEMATOCRIT 34.4 % (36.0-47.0); HEMOGLOBIN 10.9 g/dl (12.0-15.5); MEAN CORPUSCULAR HEMOGLOBIN 26.7 pg (27.0-33.0); MEAN CORPUSCULAR HGB CONC 31.7 g/dl (32.0-36.5); MEAN CORPUSCULAR VOLUME 84.1 fl (80.0-96.0); PLATELET COUNT, AUTOMATED 248 10^3/uL (150-450); RED BLOOD COUNT 4.09 10^6/uL (4.00-5.40)
[2023-08-23 05:37] LABS: ATYPICAL LYMPH 1 % (0-5); EOSINOPHILS 7 % (0-3); LYMPHOCYTES 36 % (16-44); MONOCYTES 6 % (0-5); NEUTROPHILS 50 % (28-66); PLATELET ESTIMATE NORMAL (NORMAL)
[2023-08-23 05:38] LABS: POIKILOCYTOSIS 1+
[2023-08-23 05:58] LABS: CALCIUM LEVEL 8.2 MG/DL (8.3-10.6); CREATININE FOR GFR 0.99 MG/DL (0.55-1.30); GLOMERULAR FILTRATION RATE 59.4 (>45); POTASSIUM SERUM 3.9 MMOL/L (3.5-5.1)
[2023-08-23 08:22] VITALS: BP 149/88; TEMP 97.5; O2SAT 98
[2023-08-23] MEDS: DAPTOmycin 650 MG in NS 50 ML IV SCH (14:51)
[2023-08-23 17:27] VITALS: BP 125/88; TEMP 97.6; O2SAT 97
[2023-08-23 21:13] VITALS: BP 112/69; TEMP 97.9; O2SAT 94
[2023-08-24 06:12] VITALS: BP 116/69; TEMP 97.5; O2SAT 96
[2023-08-24 07:34] LABS: BASO # 0.1 10^3/uL (0.0-0.2); EOS # 0.2 10^3/uL (0.0-0.5); EOS % 2.7 % (0.0-3.0); HEMATOCRIT 35.6 % (36.0-47.0); HEMOGLOBIN 11.3 g/dl (12.0-15.5); LYMPH # 2.1 10^3/uL (1.5-5.0); LYMPH % 36.4 % (24.0-44.0); MEAN CORPUSCULAR HEMOGLOBIN 26.8 pg (27.0-33.0); MEAN CORPUSCULAR HGB CONC 31.7 g/dl (32.0-36.5); MEAN CORPUSCULAR VOLUME 84.4 fl (80.0-96.0); MONO # 0.5 10^3/uL (0.0-0.8); MONO % 7.9 % (2.0-8.0); PLATELET COUNT, AUTOMATED 290 10^3/uL (150-450); RED BLOOD COUNT 4.22 10^6/uL (4.00-5.40); WHITE BLOOD COUNT 5.8 10^3/uL (4.0-10.0)
[2023-08-24 08:01] LABS: CALCIUM LEVEL 8.5 MG/DL (8.3-10.6); CREATININE FOR GFR 1.04 MG/DL (0.55-1.30); GLOMERULAR FILTRATION RATE 56.1 (>45); POTASSIUM SERUM 4.2 MMOL/L (3.5-5.1)
[2023-08-24] MEDS: ATORVASTATIN 20 MG TAB PO SCH (09:55)
[2023-08-24 14:00] VITALS: BP 118/79; TEMP 98.1; O2SAT 99
[2023-08-24] MEDS: GABAPENTIN 100 MG CAP PO SCH (15:09)
[2023-08-24 20:11] VITALS: BP 123/76; TEMP 98.1; O2SAT 98
[2023-08-24] MEDS: CHLORHEXIDINE GLUCONATE 0.12 % 15ML UDC (PERIDEX ORAL RINSE) MT SCH (20:41)
[2023-08-25 06:23] VITALS: BP 108/68; TEMP 98.8; O2SAT 96
[2023-08-25 14:00] VITALS: BP 126/76; TEMP 98.2; O2SAT 96
[2023-08-25 17:25] LABS: C REACTIVE PROTEIN QUANTITATIV 2.8 MG/DL (<1.0)
[2023-08-25 21:00] VITALS: BP 156/84; TEMP 97.9; O2SAT 99
[2023-08-26 05:00] VITALS: BP 111/69; TEMP 97.7; O2SAT 97
[2023-08-26 09:18] VITALS: BP 111/69
[2023-08-26] MEDS ORDERED: DALV1SOL IV (11:51)
[2023-08-26] MEDS ORDERED: PERI12LIQ MT (11:51)
[2023-08-26] MEDS ORDERED: CHLO25TA PO (11:51)
[2023-08-26] MEDS ORDERED: AMLO1TAB25 PO (11:51)
[2023-08-26] MEDS ORDERED: ASPI81TAEC PO (11:51)
[2023-08-26] MEDS ORDERED: TOPR100T PO (11:51)
[2023-08-28 18:09] LABS: FREE KAPPA LIGHT CHAINS SERUM 38.8 mg/L (3.3-19.4); KAPPA/LAMBDA RATIO SERUM 1.55 (0.26-1.65)
== END 2023-08-26 12:55 | disposition home or self-care (01) | DRG 177 ==
LOC: M ED 21:44 → M ED INP 08-15 04:11 → M MSPAV 08-15 04:52 → M ICU 08-18 09:23 → M MS5PR 08-23 17:15
PROVIDERS: ADMIT Internal Medicine; ATTEND Internal Medicine
PROC: 02HV33Z Insertion of Infusion Device into Superior Vena Cava, Percutaneous Approach (ICD-10-PCS; principal; 2023-08-21 10:00)
DX: U07.1 COVID-19 (principal); G93.41 Metabolic encephalopathy; I63.9 Cerebral infarction, unspecified; N17.9 Acute kidney failure, unspecified; R78.81 Bacteremia; T82.7XXA Infection and inflammatory reaction due to other cardiac and vascular devices, implants and grafts, initial encounter; E03.9 Hypothyroidism, unspecified; I10 Essential (primary) hypertension; F32.9 Major depressive disorder, single episode, unspecified; E78.00 Pure hypercholesterolemia, unspecified; M17.12 Unilateral primary osteoarthritis, left knee; J45.909 Unspecified asthma, uncomplicated; E78.5 Hyperlipidemia, unspecified; K21.9 Gastro-esophageal reflux disease without esophagitis; B95.61 Methicillin susceptible Staphylococcus aureus infection as the cause of diseases classified elsewhere; G62.9 Polyneuropathy, unspecified; E87.6 Hypokalemia; Z85.850 Personal history of malignant neoplasm of thyroid; I80.8 Phlebitis and thrombophlebitis of other sites; Z79.899 Other long term (current) drug therapy; G47.00 Insomnia, unspecified; M85.88 Other specified disorders of bone density and structure, other site; Y84.8 Other medical procedures as the cause of abnormal reaction of the patient, or of later complication, without mention of misadventure at the time of the procedure

== ENCOUNTER 2023-08-26 13:26 | Outpatient (CLI) | payer MEDICARE, MEDICAID ==
[~2023-08-26] VITALS: Ht 152.4 cm; Wt 79.7 kg
[~2023-08-26 13:26] MED LIST changes: +AMLO1TAB25 PO; +ASPI81TAEC PO; +CHLO25TA PO; +DALV1SOL IV; +OMEP1CAP73 PO; +PERI12LIQ MT; +TOPR100T PO
[2023-08-26 13:35] VITALS: BP 161/83; O2SAT 96
[2023-08-26] MEDS: DALBAVANCIN 1,500 MG in D5W 250 ML IV ONE (14:08)
[2023-08-26 14:15] VITALS: BP 125/78; O2SAT 97
[2023-08-26 15:05] VITALS: BP 139/81; O2SAT 97
== END 2023-08-26 15:10 ==
LOC: M INFU 13:26
PROVIDERS: ATTEND Internal Medicine Infectious Disease
DX: I80.8 Phlebitis and thrombophlebitis of other sites (principal); B95.61 Methicillin susceptible Staphylococcus aureus infection as the cause of diseases classified elsewhere; U07.1 COVID-19
CPT/HCPCS: 96365; J0875

== ENCOUNTER → 2023-10-15 | Outpatient (CLI) | payer MEDICARE, MEDICAID ==
[~2023-10-15] MED LIST changes: +BUPR-597 PO; -BUPR300T92 PO; +PROHANCE 279.3MG/ML 15ML VIAL As Ordered ONE
== END ==
LOC: M RAD 10:35
PROVIDERS: ATTEND Internal Medicine Hematology & Oncology
DX: M48.02 Spinal stenosis, cervical region (principal)
CPT/HCPCS: 72156; 78306; A9503; A9576

== ENCOUNTER → 2023-11-16 | Outpatient (CLI) | payer MEDICARE, MEDICAID ==
[~2023-11-16] MED LIST changes: +CYCL5TAB PO; -PROHANCE 279.3MG/ML 15ML VIAL As Ordered ONE
== END ==
LOC: M RAD 15:22
PROVIDERS: ATTEND Nurse Practitioner Family
DX: I82.621 Acute embolism and thrombosis of deep veins of right upper extremity (principal)

== ENCOUNTER 2024-06-04 17:58 | Emergency (ER) | payer MEDICAID, MEDICARE ==
[~2024-06-04 17:58] MED LIST changes: -CYCL5TAB PO; +CYCL5TAB4 PO
[2024-06-04] MEDS ORDERED: OSEL75CA PO (20:18)
[2024-06-04] MEDS: OSELTAMIVIR PHOSPHATE 75 MG CAP (TAMIFLU) PO ONE (20:29)
[2024-06-04 20:38] VITALS: BP 164/86; TEMP 99.9; O2SAT 100
[2024-06-05] MEDS ORDERED: BENZ200C70 PO (16:18)
== END 2024-06-04 20:49 | disposition home or self-care (01) ==
LOC: M ED 17:58
DX: J09.X9 Influenza due to identified novel influenza A virus with other manifestations (principal); I10 Essential (primary) hypertension; E78.5 Hyperlipidemia, unspecified; K21.9 Gastro-esophageal reflux disease without esophagitis; Z20.822 Contact with and (suspected) exposure to COVID-19; Z79.890 Hormone replacement therapy; Z79.899 Other long term (current) drug therapy

== ENCOUNTER → 2024-08-09 | Outpatient (REF) | payer MEDICARE, MEDICAID ==
[~2024-08-09] MED LIST changes: +BENZ200C70 PO; +OSEL75CA PO
[2024-08-09 16:07] LABS: BASO # 0.1 10^3/uL (0.0-0.2); BASO % 1.3 % (0.0-1.0); EOS # 0.2 10^3/uL (0.0-0.5); EOS % 4.1 % (0.0-3.0); HEMATOCRIT 36.2 % (36.0-47.0); HEMOGLOBIN 11.3 g/dl (12.0-15.5); LYMPH # 1.2 10^3/uL (1.5-5.0); LYMPH % 30.3 % (24.0-44.0); MEAN CORPUSCULAR HEMOGLOBIN 25.6 pg (27.0-33.0); MEAN CORPUSCULAR HGB CONC 31.2 g/dl (32.0-36.5); MEAN CORPUSCULAR VOLUME 82.1 fl (80.0-96.0); MONO # 0.3 10^3/uL (0.0-0.8); MONO % 7.7 % (2.0-8.0); NEUTROPHILS # 2.2 10^3/uL (1.5-8.5); NEUTROPHILS % 56.3 % (36.0-66.0); PLATELET COUNT, AUTOMATED 247 10^3/uL (150-450); RED BLOOD COUNT 4.41 10^6/uL (4.00-5.40); WHITE BLOOD COUNT 3.9 10^3/uL (4.0-10.0)
[2024-08-09 16:36] LABS: HEMOGLOBIN A1c 5.8 % (4.0-6.0)
[2024-08-09 16:41] LABS: ALBUMIN 3.4 G/DL (3.2-5.2); ALKALINE PHOSPHATASE 114 U/L (35-104); ALT/SGPT 20 U/L (7.0-40); AST/SGOT 19 U/L (<34); BILIRUBIN,TOTAL 0.3 MG/DL (0.3-1.2); BLOOD UREA NITROGEN 16 MG/DL (9-23); CALCIUM LEVEL 9.1 MG/DL (8.3-10.6); CARBON DIOXIDE LEVEL 29 MMOL/L (20-31); CHLORIDE LEVEL 102 MMOL/L (98-107); CHOLESTEROL LEVEL 318 MG/DL (<200); CHOLESTEROL RISK RATIO 3.39 (<5); GLOMERULAR FILTRATION RATE > 60.0 (>45); GLUCOSE, FASTING 93 MG/DL (74-106); HDL CHOLESTEROL 93.8 MG/DL (>40); MAGNESIUM LEVEL 1.9 MG/DL (1.8-2.4); NON-HDL-C 224.2 MG/DL; POTASSIUM SERUM 4.1 MMOL/L (3.5-5.1); SODIUM LEVEL 141 MMOL/L (136-145); TOTAL PROTEIN 6.8 G/DL (5.7-8.2); TRIGLYCERIDES LEVEL 141 MG/DL (<150)
[2024-08-09 16:43] LABS: THYROID STIMULATING HORMONE 6.661 uIU/ML (0.55-4.78)
== END ==
LOC: M LAB REF 15:39
PROVIDERS: ATTEND Nurse Practitioner Family
DX: E66.3 Overweight (principal)

== ENCOUNTER 2024-12-21 13:01 | Emergency (ER) | payer MEDICARE, MEDICAID ==
[~2024-12-21] VITALS: Ht 149.9 cm; Wt 74.5 kg
[~2024-12-21 13:01] MED LIST changes: -AMBI10TA PO; -BUPR-597 PO; +BUPR-766 PO; +ZOLP-533 PO
[2024-12-21 14:31] LABS: PLATELET COUNT, AUTOMATED 287 10^3/uL (150-450)
[2024-12-21 14:51] LABS: AMPHETAMINES LEVEL URINE NEGATIVE (NEGATIVE)
[2024-12-21 14:52] LABS: BARBITURATES URINE NEGATIVE (NEGATIVE); BENZODIAZEPINES URINE NEGATIVE (NEGATIVE); CANNABINOIDS URINE NEGATIVE (NEGATIVE); COCAINE METABOLITE URINE NEGATIVE (NEGATIVE); METHADONE URINE NEGATIVE (NEGATIVE); OPIATES URINE NEGATIVE (NEGATIVE); PHENCYCLIDINE URINE NEGATIVE (NEGATIVE)
[2024-12-21 14:55] LABS: ETHYL ALCOHOL (ETHANOL) < 0.003 % (0.000-0.010)
[2024-12-21 14:56] LABS: SALICYLATE LEVEL < 3.0 MG/DL (<30)
[2024-12-21 14:57] LABS: ALT/SGPT 25 U/L (7.0-40); AST/SGOT 24 U/L (<34); CALCIUM LEVEL 9.3 MG/DL (8.3-10.6); CARBON DIOXIDE LEVEL 30 MMOL/L (20-31); CHLORIDE LEVEL 104 MMOL/L (98-107); CREATININE FOR GFR 0.94 MG/DL (0.55-1.30); GLOMERULAR FILTRATION RATE 65.7 (>45); POTASSIUM SERUM 4.4 MMOL/L (3.5-5.1); SODIUM LEVEL 144 MMOL/L (136-145)
[2024-12-21 17:18] VITALS: BP 166/89; TEMP 97.8; O2SAT 96
== END 2024-12-21 17:25 | disposition home or self-care (01) ==
LOC: M ED 13:01
DX: F32.A Depression, unspecified (principal); I10 Essential (primary) hypertension; E78.5 Hyperlipidemia, unspecified; Z90.89 Acquired absence of other organs; Z79.82 Long term (current) use of aspirin; Z79.02 Long term (current) use of antithrombotics/antiplatelets; Z79.899 Other long term (current) drug therapy

== ENCOUNTER → 2024-12-30 | Outpatient (REF) | payer MEDICARE, MEDICAID ==
[2024-12-30 16:56] LABS: ALT/SGPT 17.0 U/L (7.0-40); AST/SGOT 21.0 U/L (<34); CALCIUM LEVEL 9.1 MG/DL (8.3-10.6); CARBON DIOXIDE LEVEL 30.0 MMOL/L (20-31); CHLORIDE LEVEL 105.0 MMOL/L (98-107); CHOLESTEROL LEVEL 200.0 MG/DL (<200); CHOLESTEROL RISK RATIO 2.47 (<5); CREATININE FOR GFR 1.04 MG/DL (0.55-1.30); GLOMERULAR FILTRATION RATE 58.2 (>45); LDL CHOLESTEROL 105.9 MG/DL (<100); NON-HDL-C 119.3 MG/DL; POTASSIUM SERUM 4.0 MMOL/L (3.5-5.1); SODIUM LEVEL 145.0 MMOL/L (136-145); TRIGLYCERIDES LEVEL 67.0 MG/DL (<150)
[2024-12-30 17:39] LABS: ESTIMATED AVERAGE GLUCOSE 120.0 MG/DL (60-110)
== END ==
LOC: M LAB REF 16:15
PROVIDERS: ATTEND Nurse Practitioner Family
DX: E78.5 Hyperlipidemia, unspecified (principal); R73.03 Prediabetes